=== PATIENT | female | born 1980 | race Caucasian/White ===

== ENCOUNTER → 2017-09-08 18:48 | Outpatient (CLI) | payer OTHER, SELFPAY ==
[2017-09-12 11:38] LABS: HPV APTIMA, High Risk Negative (Negative)
== END ==
PROVIDERS: Visit Provider Obstetrics & Gynecology
DX: Z12.4 Encounter for screening for malignant neoplasm of cervix (principal)
CPT/HCPCS: 88175; G0145

== ENCOUNTER → 2017-12-26 13:17 | Outpatient (CLI) | payer SELFPAY, OTHER | PROVIDERS: Visit Provider Internal Medicine | DX: E04.9 Nontoxic goiter, unspecified (principal) | CPT/HCPCS: 76536 ==

== ENCOUNTER → 2019-02-05 15:25 | Outpatient (CLI) | payer BC, SELFPAY ==
[2018-11-16 08:39] VITALS: BMI 29.9
--- NOTE | 2019-02-05 15:31 | US_ITS ---
STUDY: THYROID ULTRASOUND REASON FOR EXAM: Female, 38 years old. Thyroid nodule follow-up TECHNIQUE: Ultrasound evaluation of the thyroid was performed with real-time and static lyons-scale imaging. COMPARISON: 12/26/2017 FINDINGS: RIGHT LOBE: The right lobe of the thyroid gland measures 4.0 x 1.9 x 1.1 cm. There is a homogeneous echotexture. Small anechoic cyst of the mid right thyroid lobe measures 3 mm with possible echogenic crystal. LEFT LOBE: The left lobe of the thyroid gland measures 4 x 1.7 x 1.2 cm. There is a homogeneous echotexture. Similar nearly anechoic cyst of the left thyroid lobe measures up to 4 mm. ISTHMUS: The isthmus measures 2 mm. The regional lymph nodes are normal. US/Thyroid IMPRESSION: Stable exam. Colloidal cysts. No suspicious/solid, new or enlarging thyroid nodules. Electronically Signed: Thai Neville MD ([facility]) at 15:52 EDT , Service support ,
== END ==
PROVIDERS: Family Provider Internal Medicine; PCP Internal Medicine; Referring Provider Internal Medicine; Visit Provider Internal Medicine
DX: E04.1 Nontoxic single thyroid nodule (principal)
CPT/HCPCS: 76536

== ENCOUNTER → 2019-12-06 08:59 | Outpatient (CLI) | payer BC, SELFPAY ==
[2019-12-06 08:59] VITALS: BMI 29.9
[2019-12-06 09:35] LABS: Absolute Lymphocyte Count 1.54 X10^3/uL (0.83-4.51); Absolute Neutrophil Count 2.7 X10^3/uL (2.0-7.7); Basophil# 0.06 X10^3/uL; Basophil% 1.3 % (0-1); Eosinophils% 2.1 % (0-5); Hematocrit 39.2 % (37-47); Hemoglobin 12.4 g/dL (12.0-15.0); Lymphocyte # 1.54 X10^3/ul (4.0); Lymphocyte % 32.1 % (19-41); Mean Corp Hgb Conc 31.6 g/dL (32-36); Mean Corpuscular Hgb 28.8 pg (27.0-32.0); Mean Platelet Vol. 10.1 fl (6.2-12.0); Monocyte# 0.42 X10^3/uL; Monocyte% 8.8 % (0-10); NRBC Flagged by Analyzer 0 % (0-5); Neutrophil # 2.66 X10^3/uL (2.7-7.7); Neutrophil % 55.3 % (47-70); Platelet Count 289 K/mm3 (150-450); RBC Distribution Width CV 13.7 % (11.6-14.6); RBC Distribution Width SD 46.5 fl (35.1-43.9); Red Blood Count 4.31 M/mm3 (4.2-5.4); White Blood Count 4.8 K/mm3 (4.4-11.0)
[2019-12-06 10:01] LABS: T4 Free Direct 1.08 ng/dL (0.76-1.46); Thyroid Stim Hormone (TSH) 1.01 uIU/mL (0.358-3.74)
== END ==
PROVIDERS: PCP Internal Medicine; Referring Provider Nurse Practitioner Women's Health; Visit Provider Nurse Practitioner Women's Health
DX: R23.2 Flushing (principal); Z13.29 Encounter for screening for other suspected endocrine disorder
CPT/HCPCS: 36415; 84439; 84443; 85025

== ENCOUNTER → 2020-06-07 08:48 | Outpatient (CLI) | payer BC, SELFPAY ==
[2019-12-06 08:59] VITALS: BMI 29.9
--- NOTE | 2020-06-07 08:53 | BI_ITS ---
MAMMOGRAPHY - BILATERAL DIAGNOSTIC REASON FOR EXAM: Female, 39 years old. 3 day history of a right breast lump. PERTINENT HISTORY: Non-contributory. TECHNIQUE: Digital bilateral breast viktoriya (3D mammographic acquisition) in the CC and MLO projections. 2-D mediolateral oblique (MLO) and craniocaudad (CC) views of both breasts were obtained. CAD: Full Field Digital Mammography with Computer Added Detection was performed. COMPARISON: None. Baseline examination. FINDINGS: Breast Composition: The breasts are heterogeneously dense, which may obscure small masses. There are no dominant masses or suspicious calcifications. No other significant abnormalities are identified. BI/DIAG MAMM W/CAD, BILAT IMPRESSION: Negative diagnostic mammogram. With the patient''s history of a palpable lump in the right breast, correlation with ultrasound is recommended. ASSESSMENT CATEGORY: BIRADS Category 0: Incomplete. Need additional imaging evaluation. A letter regarding these results will be sent to the patient by the facility within 30 days. Approximately 10% of breast cancers are not detected by mammography. A normal mammogram should not delay biopsy of a clinically suspicious abnormality. Electronically Signed: Kevin Mensah MD at 10:03 EST , Service support ,
--- NOTE | 2020-06-07 09:35 | US_ITS ---
STUDY: ULTRASOUND BREAST - RIGHT REASON FOR EXAM: Female, 39 years old. Deep right palpable abnormality. TECHNIQUE: Axial and longitudinal images of the RIGHT breast were performed with a high resolution ultrasound transducer. # OF IMAGES: 22 COMPARISON: Comparison is made with prior mammogram done earlier today. FINDINGS: RIGHT Breast: The palpable abnormality in the deep inferior lateral portion of the right breast corresponds to a palpable pectoralis muscle. US/Breast Limited Unilateral IMPRESSION: No sonographic abnormality is seen. ASSESSMENT CATEGORY: BIRADS Category 1: Negative. A letter regarding these results will be sent to the patient by the facility within 30 days. Electronically Signed: Kevin Mensah MD at 10:35 EST , Service support ,
== END ==
PROVIDERS: PCP Internal Medicine; Referring Provider Internal Medicine; Visit Provider Internal Medicine
DX: N63.0 Unspecified lump in unspecified breast (principal)
CPT/HCPCS: 76642; 77062; 77066; G0279

== ENCOUNTER 2020-07-20 05:59 | Day surgery (SDC) | payer BC, SELFPAY ==
[2020-07-06 13:24] VITALS: BMI 31.5
[2020-07-20] VITALS (7 sets, daily range): BP systolic 117–136; BP diastolic 59–97; PULSE 63–80; RESP 16–18; TEMP 36.4–36.6; O2SAT 98–100; BMI 31.1
--- NOTE | 2020-07-20 06:11 | HP.PCM_ITS ---
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 Is patient in pain?: Yes (Right ribs) Pain scale (1-10): 6 Allergies acetaminophen [From Darvocet-N] Allergy (Verified 07/06/20 13:26) Angioedema propoxyphene [From Darvocet-N] Allergy (Verified 07/06/20 13:26) Angioedema Medications cholecalciferol (vitamin D3) 50 mcg (2,000 unit) capsule 2,000 unit PO DAILY 11/16/18 [History Confirmed 07/06/20] omega-3 fatty acids 1,000 mg capsule 1,000 mg PO DAILY 07/06/20 [History Confirmed 07/06/20] [facility] Medical History Thyroid nodule (Acute) Decreased libido (Chronic) Abnormal Pap smear of cervix (Acute) Goiter (Acute) Surgical History H/O umbilical hernia repair (Resolved) S/P foot surgery, left (Resolved) Family History Unknown Arthritis Cancer Hypertension High cholesterol Kidney stones CVA (cerebral vascular accident) Thyroid ca Thyroid nodule Social History (Updated 07/06/20 @ 16:[address] 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 She complains of focal tenderness. She has had a right breast ultrasound done June 07 at the [facility]. On ultrasound it is felt to correspond to a palpable pectoralis muscle. The patient had diagnostic mammography on June 07, 2020 at the [facility]. This was BI-RADS Category 0 negative. Breast ultrasound recommended. The patient also had a MRI done of the chest and shoulder area at [facility]. On my inspection of those views there appears to be a soft tissue mass adjacent the right chest wall. This would correlate with her physical exam. HPI HPI HPI: MIYA SHEPPARD, is a 39 F who presents to the office today for ROS General General: Yes fatigue; no weight change, appetite, colon cancer, breast cancer or weakness HEENT HEENT: No difficulty swallowing, eye injury, eye surgery, swollen glands or hoarseness Endo Endocrine: No thyroid disease, diabetes mellitus, thyroid cancer, Hair loss, heat intolerance or cold intolerance Skin Skin: No rash or changing moles Musc Musculoskeletal: No back problems, arthritis, rheumatoid arthritis, gout or joint pain Cardio Cardiovascular: No murmur, pacemaker, heart disease, atrial fibrillation, high blood pressure, heart attack, heart stent, palpitations, shortness of breat with exertion or chest pain Psych Psychiatric: No depression, anxiety or hearing voices Resp Respiratory: No shortness of breath, No sleep apnea, No cough, No COPD, No asthma, No emphysema, No wheezing Gastro Gastrointestinal: No abdominal pain, No nausea or vomiting, No diarrhea, No constipation, No blood in stool, No acid reflux, Yes hemorrhoids, No ulcers, No gallbladder problem, No black,tarry stools Sandip Hematologic: No blood thinners, No blood disorders, No bleeding, No anemia, No blood clots Neuro Neurologic: No weakness Exam Const General: cooperative, healthy appearing, comfortable, no acute distress Nutritional Appearance: average body habitus Orientation: alert, awake [facility] Head: normal to inspection Eyes General: appearance normal, both eyes and all related structures Chest Other: Right lateral chest wall lateral to the breast there is a rubbery subcutaneous mass measuring approximately 3.5 x 3 cm. Has some deep fixation. Slightly tender to palpation. No erythema no drainage. Resp Effort & Inspection: normal respiratory effort Auscultation: clear to auscultation bilaterally Cardio Rate: regular rate Rhythm: regular rhythm Heart Sounds: no murmurs GI Palpation: soft, no hepatosplenomegaly Neuro Cognition: normal cognition Extrem General: no calf tenderness Psych Affect: normal affect Assessment & Plan Problems 1. Subcutaneous mass R22.9 Plan Subcutaneous mass right lateral chest wall. I have offered the patient a transverse incision and complete excision. I believe that this would be most easily accomplished under monitored anesthesia care and local anesthetic. I discussed technique, benefit, risk of alternatives. She has had an opportunity to ask and have questions answered. If persistent being tender to her. I have cautioned her that there is the possibility that a complete excision does not absolutely remedy her discomfort but it would seem reasonable that this mass is etiologic. We will schedule procedure at her discretion. I very much appreciate the kind opportunity of assisting with her surgical care. Copy: Dr. Maude Hayden and Dr. Chun Scott M.D., F.A.C.S. After to the patient's departure I did obtain interpretation from her chest with contrast MRI with special attention to the right thorax that was performed for her through [facility] on June 20, 2020. There is suggestion of a insertional tear of the supraspinatus tendon. There is a 1 cm fluid density in the liver dome either a cyst or hemangioma. There is no discussion of any soft tissue finding right lateral chest wall. To my review however I feel that I do identify a subcutaneous soft tissue mass. I believe that this correlates with the soft tissue subcutaneous mass that I can palpate and I suspect that this is consistent with a lipoma. We will proceed with plans for excision Marco Scott M.D., F.A.C.S. Coding Level of Care Code Off vis,new,level 3 Diagnoses Subcutaneous mass R22.9 I have re-examined the patient. There are no clinical changes since date of exam. Procedure Criteria Procedure Type: Elective COVID Risk Discussion: The surgeon/proceduralist and patient have discussed in detail the risk of exposure to and/or potential harm posed by the COVID-19 virus with having a surgery/procedure at this time versus the risk of delaying the surgery/procedur e. It is not possible to know either the risk of delaying the surgery or procedure or chance of getting an infection with perfect accuracy, but a joint decision was made between the patient and the surgeon/proceduralist to proceed at this time with the scheduled surgery/procedure as indicated on the consent form.
--- NOTE | 2020-07-20 06:12 | DCINST_ITS ---
Discharge Diet: Light diet - advance as tolerated - if you have questions about your diet instructions, please talk to you doctor. Discharge Activity: May Not Drive - for 1 week or while taking narcotic pain medicine. May shower in (days): 1 Lifting Restrictions: 10 pounds Call your doctor if your incision/area has: Continuous Slow Oozing, Sudden Increased Bleeding, Increased Pain/ Swelling, Increased Redness, Foul Smelling Discharge Call your doctor if you observe: Fever of 101 or Higher Suture Line Care: Avoid Pulling/Pushing, Avoid Pinching/Bending Additional Dressing/Incision Instructions:: Change or remove dressing in 4 days. Leave steri-strips in place for 1 week. Allergies/Adverse Reactions: Allergies acetaminophen [From Darvocet-N] Allergy (Verified 07/13/20 09:57) Angioedema propoxyphene [From Darvocet-N] Allergy (Verified 07/13/20 09:57) Angioedema Medications to take at Discharge cholecalciferol (vitamin D3) 50 mcg (2,000 unit) capsule 2,000 unit PO DAILY 11/16/18 omega-3 fatty acids 1,000 mg capsule 1,000 mg PO DAILY 07/06/20 Primary Care Physician: Maude Hayden DO [Primary Care Provider] - Test Results: Test results from this visit will be discussed in further detail at your follow- up appointment, if applicable. Please Follow Up With: Marco Scott MD - [phone] When: Call to make an appointment to be seen in about 10 days.
[2020-07-20 06:17] LABS: Internal QC Validated? YES +Cl - CLEAR BKGD; Pregnancy, Urine Negative Negative
[2020-07-20] MEDS: Lactated Ringers 1,000 ML 100 ML IV (06:42)
--- NOTE | 2020-07-20 07:30 | SOF_PTH ---
PATIENT: MIYA SHEPPARD LOC: [facility] [place] U#:[id number] AGE/SX: 39/F ROOM: RE07/20/[address]: Dr. Marco Scott MD : 1980 BED: DIS: 07/20/2020 SPEC #: [id number] RECD: 07/20/20 11:03 STATUS: BENJAMIN TICO #: [id number] JONI: 07/20/20 07:[address]: Marco Scott DEPT: SURGICAL PATHOLOGY RECD BY: Kia Billy ENTERED: 07/20/20 12:19 SP TYPE: SOFT TISS OTHR DR: Maude Hayden, Tissues: Soft tissues, NOS Procedures: Surgery Specimen Level III HEADER OPERATION: Excision lateral chest wall subcutaneous mass PRE-OP DIAGNOSIS: Subcutaneous mass TISSUE SUBMITTED: Right chest wall mass MICROSCOPIC DIAGNOSIS Right chest wall, excisional biopsy: Mature adipose tissue, consistent with lipoma. SJ:paul 07/21/2020 MICROSCOPIC DESCRIPTION Slides are reviewed. GROSS DESCRIPTION Received in fixative is one container labeled with the patient's name and designated right lateral chest wall mass. The specimen consists of an irregular piece of adipose tissue measuring 6 x 4.5 x 1.5 cm. The external surface is inked. Sections reveal yellow adipose cut surfaces without areas of hemorrhage, necrosis or cystic degeneration. Trim Line Worker sections are submitted in three cassettes. / PARTH:paul 07/20/20 TC:1 CPT: 52600
[2020-07-20] MEDS: Bupivacaine Mpf 0.5% 30 ML VIAL (07:50)
--- NOTE | 2020-07-20 07:59 | PCM.OPRPT ---
Problem List (1) Subcutaneous mass Status: Acute Report of Operation Date of Procedure: 07/20/20 Pre-Operative Diagnosis: Right mid lateral chest wall subcutaneous mass Post-Operative Diagnosis: Right mid lateral chest wall subcutaneous lipoma 6 x 4.5 cm Surgery/Procedure Performed:: Excision right mid lateral subcutaneous chest wall mass Description of Surgical Findings:: Timeout and informed consent was obtained. 39-year-old female was taken to the operating room placed supine on the table underwent general anesthesia with an LMA. She was then placed in a left lateral decubitus position. Careful axillary roll was placed. Pelvic securement was placed. The knees were secured and protected. Ankles were protected. The right mid lateral chest was prepped with chlorhexidine. Draping was performed. 0.5% Marcaine was used as a local anesthetic. Skin sites were preanesthetized. Throughout the procedure total 30 cc was used. A transverse incision was made directly over the mass. Electrocautery dissection was performed down through the subcutaneous tissue. There was a tough sinew in the fascia overlying the capsule which was incised and then the lipoma actually could be dissected free. It appeared to be external to the oblique musculature. I felt that I got a complete excision. Hemostasis was intact. The Radames's fascia was approximated with running 3-0 Vicryl. Subdermal edges approximate interrupted 3-0 Vicryl. Skin edges approximated with a running septic or 4-0 Monocryl. Skin prep Steri-Strips Telfa OpSite dressings applied. Sponge and instrument and needle counts were reported the surgeon to be correct. Blood loss minimal. She was taken to the recovery area in satisfactory condition without apparent complication. Specimen lipoma. Drains none. Blood loss minimal. Marco Scott M.D., F.A.C.S. Type of Anesthesia:: General Anesthesiologist: Poly Gayle
== END 2020-07-20 09:20 | disposition home or self-care (01) ==
LOC: SDC 05:59 → AC 06:01
PROVIDERS: Anesthesiology; PCP Internal Medicine; Referring Provider Surgery; Visit Provider Surgery
PROC: (CPT 21554; principal; 2020-07-20 07:15)
DX: D17.1 Benign lipomatous neoplasm of skin and subcutaneous tissue of trunk (principal); Z20.822 Contact with and (suspected) exposure to COVID-19; Z87.891 Personal history of nicotine dependence
CPT/HCPCS: 21554; 81025; 87426; 88304; 88305; C9803; J7120; J2405

== ENCOUNTER → 2020-12-14 15:45 | Outpatient (CLI) | payer BC, SELFPAY ==
[2020-07-20 06:25] VITALS: BMI 31.1
--- NOTE | 2020-12-14 15:49 | CT_ITS ---
STUDY: CT ABDOMEN AND PELVIS WITHOUT CONTRAST REASON FOR EXAM: Female, 40 years old. STONE PROTOCOL RADIATION DOSAGE (If Supplied By Facility): CTDIvol = ( 9.07 ) mGy, DLP = ( 558.84 ) mGycm TECHNIQUE: Transaxial images were obtained from the dome of the diaphragm to the symphysis pubis without oral contrast, and without intravenous contrast. Sagittal and coronal images were reconstructed. Individualized dose optimization techniques were used for this CT. COMPARISON: None. FINDINGS: The visualized lung bases are unremarkable. The visualized portions of the heart are within normal limits. 2 cm mass of decreased attenuation the posterior aspect lateral segment left lobe of the liver and correlation with liver mass protocol CT is recommended. Normal gallbladder and extrahepatic biliary system. Normal spleen. Normal pancreas. Normal bilateral adrenal glands. Normal right kidney. Normal left kidney. Normal visualized stomach. Normal small intestine. Normal colon. The appendix is visualized and appears normal. Normal abdominal aorta. Normal inferior vena cava. Normal retroperitoneum. Normal urinary bladder. Normal abdominal wall. Normal osseous structures. CT/Abdomen/Pelvis without Cont IMPRESSION: 1. No renal or ureteral stone. 2. 2 cm mass in the lateral segment left lobe of the liver and correlation with liver mass protocol is recommended. Electronically Signed: Jose Zavala MD at 16:37 EDT Tel , Service support ,
== END ==
PROVIDERS: PCP Internal Medicine; Visit Provider Internal Medicine
DX: R10.9 Unspecified abdominal pain (principal)
CPT/HCPCS: 74176

== ENCOUNTER → 2020-12-18 06:57 | Outpatient (CLI) | payer BC, SELFPAY ==
--- NOTE | 2020-12-18 06:59 | CT_ITS ---
STUDY: CT ABDOMEN WITH AND WITHOUT IV CONTRAST; CT PELVIS WITH CONTRAST REASON FOR EXAM: Female, 40 years old. LIVER MASS,LEFT LOBE -- CONCENTRATE ON LIVER MASS PROTOCOL RADIATION DOSAGE (If Supplied By Facility): CTDIvol = ( 11.49 ) mGy, DLP = ( 1542.01 ) mGycm TECHNIQUE: Transaxial images were obtained from the dome of the diaphragm to the symphysis pubis without oral contrast. IV 100mL Isovue-[id number] was administered. Imaging of the abdomen and pelvis was performed according to liver protocol without and with IV contrast. Sagittal and coronal images were reconstructed. Individualized dose optimization techniques were used for this CT. COMPARISON: 12/14/2020 FINDINGS: The visualized lung bases are unremarkable. The visualized portions of the heart are within normal limits. 2.0 x 2.3 cm low-density lesion of the posterior left hepatic lobe is redemonstrated with peripheral enhancement and subsequent progressive filling, compatible with hemangioma (benign). 7 mm enhancing lesion of the posterior left hepatic lobe (lateral segment) on image 22 of series 3) is also compatible with hemangioma. Subtle low density lesion of the anterior medial segment left hepatic lobe on image 5 of series 2 measures 1 cm with peripheral enhancement (inconspicuous on delayed imaging), also compatible with hemangioma. Normal gallbladder and extrahepatic biliary system. Normal spleen. Normal pancreas. Normal bilateral adrenal glands. Normal right kidney. Normal left kidney. Normal visualized stomach. Normal small intestine. Normal colon. The appendix is visualized and appears normal. Normal abdominal aorta. Normal inferior vena cava. Normal retroperitoneum. Normal urinary bladder. Normal abdominal wall. Normal osseous structures. CT/CT Abd/Pelvis W/WO Contrast IMPRESSION: 1. Multiple hepatic hemangiomata (benign) including 2.0 x 2.[address] of 12/14/2020. ACR White Paper guidelines (Estelita, et al. JACR 2017; 14(11):5171-6999.) suggest no follow-up is necessary. Electronically Signed: Thai Neville MD (Bro[place]) at 8:00 EDT , Service support ,
== END ==
PROVIDERS: PCP Internal Medicine; Referring Provider Internal Medicine; Visit Provider Internal Medicine
DX: R16.0 Hepatomegaly, not elsewhere classified (principal)
CPT/HCPCS: 74178; Q9967

== ENCOUNTER → 2021-12-25 | Outpatient (CLI) | payer BC, SELFPAY ==
--- NOTE | 2021-12-25 08:52 | BI_ITS ---
MAMMOGRAPHY - BILATERAL SCREENING REASON FOR EXAM: Female, 41 years old. Routine annual screening examination. PERTINENT HISTORY: Non-contributory. TECHNIQUE: Digital bilateral breast tom (3D mammographic acquisition) in the CC and MLO projections. 2-D mediolateral oblique (MLO) and craniocaudad (CC) views of both breasts were obtained. CAD: Full Field Digital Mammography with Computer Added Detection was performed. COMPARISON: Comparison is made with prior study dated 06/07/2020. FINDINGS: Breast Composition: The breasts are heterogeneously dense, which may obscure small masses. There are no dominant masses or suspicious calcifications. Small benign-appearing left axillary lymph nodes. No other significant abnormalities are identified. There has been no significant change since the prior study. BI/SCRN MAMM (CAD)W/TOM BILAT IMPRESSION: Stable bilateral screening mammogram. Yearly follow-up mammogram recommended. (A) ASSESSMENT CATEGORY: BIRADS Category 2: Benign. A letter regarding these results will be sent to the patient by the facility within 30 days. Approximately 10% of breast cancers are not detected by mammography. A normal mammogram should not delay biopsy of a clinically suspicious abnormality. [id number] Electronically Signed: Kevin Mensah MD at 8:38 EDT ,
== END | disposition home or self-care (01) ==
LOC: OPBI 08:51
PROVIDERS: PCP Internal Medicine; Visit Provider Nurse Practitioner Women's Health
DX: Z12.31 Encounter for screening mammogram for malignant neoplasm of breast (principal); N89.8 Other specified noninflammatory disorders of vagina
CPT/HCPCS: 77063; 77067; 87070; 87205

== ENCOUNTER → 2022-12-27 | Outpatient (CLI) | payer OTHER, SELFPAY ==
--- NOTE | 2022-12-27 07:56 | US_ITS ---
STUDY: THYROID ULTRASOUND REASON FOR EXAM: Female, 42 years old. Thyromegaly TECHNIQUE: Ultrasound evaluation of the thyroid was performed with real-time and static lyons-scale imaging. COMPARISON: Comparison is made with prior study February 05, 2019. FINDINGS: RIGHT LOBE: The right lobe of the thyroid gland is enlarged and measures 5.2 cm x 1.6 cm x 1.1 cm. There is a homogeneous echotexture. There is a 4 mm x 3 mm x 2 mm cyst in the upper pole. There is also evidence of a 2 mm x 2 mm x 2 mm cyst in the lower pole. LEFT LOBE: The left lobe of the thyroid gland is enlarged and measures 5 cm x 1.6 x 1.2 cm. There is a homogeneous echotexture. There are no demonstrated solid, cystic or complex lesions. ISTHMUS: The isthmus measures 3.0 mm. The regional lymph nodes are normal. US/Thyroid IMPRESSION: Small cysts are seen in the right lobe of the thyroid. Enlargement of both lobes of the thyroid gland. Electronically Signed: Kevin Mensah MD at 14:04 EDT ,
--- NOTE | 2022-12-27 07:56 | BI_ITS ---
MAMMOGRAPHY - BILATERAL SCREENING REASON FOR EXAM: Female, 42 years old. Routine annual screening examination. PERTINENT HISTORY: Non-contributory. TECHNIQUE: Digital bilateral breast tom (3D mammographic acquisition) in the CC and MLO projections. 2-D mediolateral oblique (MLO) and craniocaudad (CC) views of both breasts were obtained. CAD: Full Field Digital Mammography with Computer Added Detection was performed. COMPARISON: Comparison is made with prior study dated December 25, 2021 and June 07, 2020. FINDINGS: Breast Composition: The breasts are heterogeneously dense, which may obscure small masses. There are no dominant masses or suspicious calcifications. No other significant abnormalities are identified. There has been no significant change since the prior study. BI/SCRN MAMM (CAD)W/TOM BILAT IMPRESSION: Stable bilateral screening mammogram. Yearly follow-up mammogram recommended. (A) ASSESSMENT CATEGORY: BIRADS Category 1: Negative. A letter regarding these results will be sent to the patient by the facility within 30 days. Approximately 10% of breast cancers are not detected by mammography. A normal mammogram should not delay biopsy of a clinically suspicious abnormality. [id number] Electronically Signed: Kevin Mensah MD at 10:09 EDT ,
== END | disposition home or self-care (01) ==
PROVIDERS: PCP Internal Medicine; Referring Provider Internal Medicine; Visit Provider Internal Medicine
DX: Z12.31 Encounter for screening mammogram for malignant neoplasm of breast (principal)
CPT/HCPCS: 76536; 77063; 77067

== ENCOUNTER → 2023-01-01 | Outpatient (CLI) | payer OTHER, SELFPAY ==
[2023-01-03 11:09] LABS: Chlamydia By Nucleic Acid AMP Negative (Negative); Gonococcus By Nucleic Acid AMP Negative (Negative)
[2023-01-04 16:08] LABS: HPV APTIMA, High Risk Negative (Negative)
== END | disposition home or self-care (01) ==
LOC: LABSPEC 09:58
PROVIDERS: PCP Internal Medicine; Referring Provider Nurse Practitioner Women's Health; Visit Provider Nurse Practitioner Women's Health
DX: Z12.4 Encounter for screening for malignant neoplasm of cervix (principal); N89.8 Other specified noninflammatory disorders of vagina; N92.0 Excessive and frequent menstruation with regular cycle; N94.6 Dysmenorrhea, unspecified
CPT/HCPCS: 87070; 87077; 87205; 87491; 87591; 87624; 88175; G0145

== ENCOUNTER → 2024-01-05 | Outpatient (CLI) | payer OTHER, SELFPAY ==
--- NOTE | 2024-01-05 08:31 | BI_ITS ---
MAMMOGRAPHY - BILATERAL SCREENING REASON FOR EXAM: Female, 43 years old. Routine annual screening examination. PERTINENT HISTORY: Non-contributory. TECHNIQUE: Digital bilateral breast tom (3D mammographic acquisition) in the CC and MLO projections. 2-D mediolateral oblique (MLO) and craniocaudad (CC) views of both breasts were obtained. CAD: Full Field Digital Mammography with Computer Added Detection was performed. COMPARISON: Comparison is made with prior study December 27, 2022 and December 25, 2021. FINDINGS: Breast Composition: The breasts are heterogeneously dense, which may obscure small masses. There are no dominant masses or suspicious calcifications. No other significant abnormalities are identified. There has been no significant change since the prior study. BI/SCRN MAMM (CAD)W/TOM BILAT IMPRESSION: Stable bilateral screening mammogram. Yearly follow-up mammogram recommended. (A) ASSESSMENT CATEGORY: BIRADS Category 1: Negative. A letter regarding these results will be sent to the patient by the facility within 30 days. Approximately 10% of breast cancers are not detected by mammography. A normal mammogram should not delay biopsy of a clinically suspicious abnormality. [id number] Electronically Signed: Kevin Mensah MD at 9:38 EDT ,
== END | disposition home or self-care (01) ==
LOC: OPBI 08:31
PROVIDERS: PCP Internal Medicine; Referring Provider Nurse Practitioner Women's Health; Visit Provider Nurse Practitioner Women's Health
DX: Z12.31 Encounter for screening mammogram for malignant neoplasm of breast (principal)
CPT/HCPCS: 77063; 77067

== ENCOUNTER → 2025-01-06 | Outpatient (CLI) | payer OTHER, SELFPAY ==
--- NOTE | 2025-01-06 07:45 | BI_ITS ---
EXAM: SCRN MAMM (CAD)W/TOM BILAT DATE: 01/06/2025 CLINICAL HISTORY: F, Age 44 y/o , SCREEN FOR BREAST CANCER No family history. TECHNIQUE: Procedure Code: [id number] Modality: MG Procedure: SCRN MAMM (CAD)W/TOM BILAT COMPARISON: Prior exam(s) dated January 05, 2024.. FINDINGS: TISSUE DENSITY: The breasts are heterogeneously dense, which may obscure small masses. Bilateral Breast Mammographic Findings: No significant masses, calcifications or other abnormalities are identified. No suspicious masses, areas of developing architectural distortion, or suspicious calcifications. There has been no significant interval change. BI/SCRN MAMM (CAD)W/TOM BILAT IMPRESSION: Stable bilateral screening mammogram. OVERALL FINAL ASSESSMENT BI-RADS 1: NEGATIVE. RECOMMENDATION: Routine annual follow-up in 1 Year A letter with findings and recommendations will be mailed to the patient. Reading Location: [place] [address]
--- OUTSIDE RECORDS SUMMARY | 2025-01-06 07:58 | XMS RPT_ITS | CCD ---
Author Organization [facility] Care Team Providers Care Bleach Tester Name Role Phone Maude Hayden Unavailable Kylee Hearn Unavailable Gravius, Keisha Unavailable Unavailable Messenger, Amy Unavailable Unavailable Unavailable Unavailable Jose Manzanares Unavailable Jose Manzanares Unavailable Slarb, Maritza Unavailable Unavailable Jose Manzanares Unavailable Suki Teague Unavailable Unavailable Gravius, Keisha Unavailable Unavailable Maude Hayden DO Unavailable Kylee Hearn Unavailable Jose Manzanares Unavailable Slarb WAITER AND CASHIER, Maritza Unavailable Unavailable Luz WAITER AND CASHIER, Latisha Unavailable Unavailable Unavailable Unavailable DO Maude Hayden Primary Care Provider Unavai labDO Maude Feliciano Referring Provider Unavailab maldonado Reyes SDV PILOT/NAVIGATOR/DDS OPERATOR, SDV PILOT/NAVIGATOR/DDS OPERATOR-C Janet Attending Provider Krissy Duran MA Unavailable Unavailable DO Maude Méndez Referring Provider Unava ilable Amy SDV PILOT/NAVIGATOR/DDS OPERATOR, SDV PILOT/NAVIGATOR/DDS OPERATOR-C Janet Attending Provider Dr. Maude Hayden Primary Care Provider [phone] Maude Hayden Referring Unavailable Maude Hayden Primary Care Unavailable Guild SDV PILOT/NAVIGATOR/DDS OPERATOR, Janet Attending Unavailable Maude Hayden Primary Care Unavailable Amy SDV PILOT/NAVIGATOR/DDS OPERATOR, Janet Referring Unavailable Amy SDV PILOT/NAVIGATOR/DDS OPERATOR, Janet Attending Unavailable Guild SDV PILOT/NAVIGATOR/DDS OPERATOR, Janet Attending Unavailable Maude Hayden Primary Care Unavailable Guild SDV PILOT/NAVIGATOR/DDS OPERATOR, Janet Referring Unavailable Maude Hayden Referring Unavailable Maude Hayden Primary Care Unavailable Guild SDV PILOT/NAVIGATOR/DDS OPERATOR, Janet Attending Unavailable Dr. Maude Hayden DO Primary Care Physician Dr. Maude Hayden DO Referring Provider Janet Steward Attending Physician [phone] Allergies Allergy Classification Reported Allergen(s) Allergy Type Date of Onset Reaction(s) Facility (7 sources) Acetaminophen / Propoxyphene; Translations: [Darvocet A500 *ANALGESICS - OPIOID*] Drug Allergy [facility] Work Phone: Comment on above: throat swells up (7 sources) Darvocet A500 *ANALGESICS - OPIOID*; Translations: [Darvocet A500 *ANALGESICS - OPIOID*] Allergy to drug (finding) [facility]; [facility] Work Phone: Comment on above: throat swells up (3 sources) Acetaminophen Drug Allergy 2 Angioedema [facility] (3 sources) Propoxyphene Drug Allergy 2 Angioedema [facility] (1 source) Acetaminophen Drug Allergy 4 [facility] (1 source) Propoxyphene Drug Allergy 4 [facility] Medications Current Medications Medication Drug Class(es) Dates Sig (Normalized) Sig (Original) cholecalciferol 0.05 mg oral capsule (3 sources) Vitamin D Start: 11-16-2018 take 1 capsule by mouth once daily Cholecalciferol (Vitamin D3) 2,000 unit capsule Active 2000 U PO DAILY November 16, 2018 12:00am Complies with drug therapy Multivitamin preparation (2 sources) Start: 12-21-2020 take 1 tablet by mouth once daily Multivitamin Active 1 TABLET PO DAILY December 21, 2020 12:00am Multivitamin tablet (1 source) Start: 12-21-2020 Multivitamin tablet Active 1 {tbl} PO DAILY December 21, 2020 12:00am Complies with drug therapy Rocky-3 Fatty Acids (Fish Oil Concentrate) 1,000 mg capsule (3 sources) Start: 07-06-2020 take 1 capsule by mouth once daily Rocky-3 Fatty Acids (Fish Oil Concentrate) 1,000 mg capsule Active 1000 mg PO DAILY July 06, 2020 12:00am Complies with drug therapy Start: 07-06-2020 take 1 capsule by mo ut once daily Rocky-3 Fatty Acids (Fish Oil Concentrate) 1,000 mg capsule Active 1000 MG PO DAILY July 06, 2020 12:00am Completed/Discontinued Medications Medication Drug Class(es) Dates Sig (Normalized) Sig (Original) certain dry (10 sources) certain dry per package apply qhs on clean dry skin adn wash off in am Inactive copper 313 mg drug implant (3 sources) Copper-containing Intrauterine Device Start: 11-16-2018 End: 12-06-2019 Copper (Paragard T 380a) 380 square mm intrauterine device Discontinued 1 NMA INTRA-UTER ONCE November 16, 2018 12:00am December 06, 2019 8:39am Start: 11-16-2018 End: 12-06-2019 Copper (Paragard T 380a) 380 square mm intrauterine device Discontinued 1 DEVICE INTRA-UTER ONCE November 16, 2018 12:00am December 06, 2019 8:39am metroNIDAZOLE 500 mg oral tablet (2 sources) Nitroimidazole Antimicrobial Start: 01-05-2023 End: 01-12-2023 take 1 tablet by mouth twice daily Metronidazole 500 mg tablet Discontinued 500 mg PO TWICE A DAY 14 7 0 January 05, 2023 12:00am January 11, 2023 12:00am January 12, 2023 12:04am NEGATED: Highlighted row has not occurred!drug or medication (9 sources) No Known Historical Medications NEGATED: Highlighted row has not occurred!No Known Historical Medications (1 source) No Known Historical Medications Problems Active Problems Problem Classification Problem Date Documented Date Episodic/Chronic Abdominal pain (20 sources) Right flank pain; Translations: [Right flank pain] Resolved: 11-04-2022 03-01-2021 Episodic Acute and chronic tonsillitis (18 sources) Amygdalolith; Translations: [Tonsillith] Resolved: 11-04-2022 12-10-2018 Chronic Immunizations and screening for infectious disease (19 sources) Need for prophylactic vaccination and inoculation against influenza; Translations: [Needs influenza immunization] 03-01-2021 Episodic Menstrual disorders (7 sources) Menorrhagia; Translations: [Excessive and frequent menstruation with regular cycle] Onset: 01-05-2024 01-01-2023 Chronic Comment on above: US. Failed IUD. cons ider lysteda, nuvaring Nonmalignant breast conditions (11 sources) Breast lump; Translations: [Breast mass in female] Resolved: 11-04-2022 06-06-2020 Episodic Other circulatory disease (20 sources) Feeling of lump in throat; Translations: [Sensation of lump in throat] 12-10-2018 Episodic Comment on above: pnd? gerd? anx possi ble? Other female genital disorders (2 sources) Other specified noninflammatory disorders of vagina; Translations: [Other specified symptoms associated with female genital organs] Episodic Other liver diseases (12 sources) Liver mass; Translations: [Liver mass, left lobe] Resolved: 11-04-2022 03-01-2021 Episodic Comment on above: mri- no issue no bx neeeded Other lower respiratory disease (14 sources) Rib pain; Translations: [Rib pain on right side] Resolved: 11-04-2022 03-01-2021 Episodic Other nutritional; endocrine; and metabolic disorders (4 sources) Body mass index 25-29 - overweight; Translations: [BMI 29.0-29.9,adult] 03-03-2019 Chronic Other nutritional; endocrine; and metabolic disorders (9 sources) Body mass index 30+ - obesity; Translations: [BMI 30.0-30.9,adult] Resolved: 11-03-2022 03-01-2021 Chronic Other nutritional; endocrine; and metabolic disorders (2 sources) Body mass index 25-29 - overweight; Translations: [BMI 29.0-29.9,adult] 03-03-2019 Episodic Other nutritional; endocrine; and metabolic disorders (20 sources) Overweight in adulthood with body mass index of 25 or more but less than 30; Translations: [BMI 29.0-29.9,adult] 03-03-2019 Episodic Other and delivery including normal (14 sources) History of past delivery; Translations: [Vaginal delivery] 12-10-2018 Episodic Comment on above: Other screening for suspected conditions (not mental disorders or infectious disease) (20 sources) Patient encounter status; Translations: [Encounter for screening mammogram for breast cancer (Renamed from Encounter for screening mammogram for malignant neoplasm of breast)] Onset: 02-02-2024 03-01-2021 Episodic Other skin disorders (3 sources) Mass of subcutaneous tissue; Translations: [Localized swelling, mass and lump, unspecified] 12-25-2021 Episodic Other upper respiratory disease (18 sources) Change in voice; Translations: [Change in voice] Resolved: 11-04-2022 12-10-2018 Episodic Comment on above: ? pnd? gerd? Residual codes; unclassified (9 sources) Needs influenza immunization; Translations: [Need for prophylactic vaccination and inoculation against influenza (Renamed from Need for immunization against influenza)] 01-09-2018 Episodic Residual codes; unclassified (20 sources) Family history of malignant neoplasm of thyroid; Translations: [Family history of thyroid cancer] 12-10-2018 Episodic Comment on above: sister Residual codes; unclassified (18 sources) Family history of stroke; Translations: [Family history of cerebrovascular accident (CVA) in grandfather] 01-09-2018 Episodic Comment on above: uner age 50 Residual codes; unclassified (20 sources) Non-smoker; Translations: [Non-smoker] 03-01-2021 Episodic Residual codes; unclassified (2 sources) Family history unknown; Translations: [Other specified health status] 01-01-2023 Episodic Comment on above: Paternal family medi pb history. Considering empower test Residual codes; unclassified (1 source) Other specified health status; Translations: [Other specified conditions influencing health status] 01-01-2023 Episodic Thyroid disorders (20 sources) Thyroid nodule; Translations: [Goiter] 12-10-2018 Chronic Unclassified (20 sources) Past or Other Problems Problem Classification Problem Date Documented Da te Episodic/Chronic Influenza (20 sources) Influenza Residual codes; unclassified (11 sources) Increased body mass index; Translations: [BMI 29.0-29.9,adult] 12-10-2018 Episodic Unclassified (20 sources) Thyromegaly Unclassified (19 sources) Encounter for annual general medical examination with abnormal findings in adult; Translations: [Patient encounter status] 01-09-2018 Unclassified (10 sources) Family history of cerebrovascular accident (CVA) in grandfather Unclassified (11 sources) Family history of thyroid cancer Unclassified (20 sources) Non-smoker; Translations: [Non-smoker] 12-10-2018 Unclassified (14 sources) Pregnancies (); Translations: [Pregnancies ()] 12-10-2018 Comment on above: 2. Unclassified (20 sources) BMI 29.0-29.9,adult Unclassified (5 sources) Patient encounter status; Translations: [Encounter for screening mammogram for breast cancer (Renamed from Encounter for screening mammogram for malignant neoplasm of breast)] 06-06-2020 Unclassified (3 sources) Breast mass in female Unclassified (1 source) Encounter for well adult exam with abnormal findings Unclassified (1 source) Thyroid cyst Unclassified (1 source) BMI 30.0-30.9,adult Unclassified (1 source) Liver mass, left lobe Unclassified (1 source) Rib pain on right side Unclassified (2 sources) Sensation of lump in throat Unclassified (1 source) Change in voice Unclassified (1 source) Tonsillith Results Test Name Value Interpretation Reference Range Facility Noise Abatement Engineer Office Visit Reporton 01-05-2024 Noise Abatement Engineer Office Visit Report [facility] [address], [address] [place] [address] OFFICE VISIT Date of Service: 01/05/24 MR#: [id number] Acct: [id number] Name: MIYA SHEPPARD ANNMARIE Rep #: [id number] : 1980 Provider: LINDSAY alicia Age/Sex: 43/F Location: [facility] Status: Signed Intake Vital Signs 01/01/23 08:20 01/05/24 09:04 01/05/24 09:08 Height 5 ft 1 in 5 ft 1 in 5 ft 1 in Weight: 161 lb 2 oz BMI 30.4 BP 124/80 H 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 Required: No Is patient in pain?: No Allergies acetaminophen (From Darvocet-N) Allergy (Verified 01/05/24 09:04) Angioedema propoxyphene (From Darvocet-N) Allergy (Verified 01/05/24 09:04) Angioedema Medications ???Medication ???Instructions ???Recorded ???Confirmed ???Type cholecalciferol (vitamin D3) 50 2,000 unit PO DAILY 11/16/18 01/05/24 History mcg (2,000 unit) capsule omega-3 fatty acids 1,000 mg 1,000 mg PO DAILY 07/06/20 01/05/24 History capsule (Fish Oil Concentrate) multivitamin 1 tab PO DAILY 12/21/20 01/05/24 History Is last menstrual period known: Yes Last Menstrual Period: 12/11/23 Post menopausal: No Patient : No : No PFSH Medical History (Updated 01/05/24 @ 09:16 by Janet Reyes SDV PILOT/NAVIGATOR/DDS OPERATOR, SDV PILOT/NAVIGATOR/DDS OPERATOR-C) Liver hemangioma Lipoma Subcutaneous mass Thyroid nodule Goiter Abnormal Pap smear of cervix Surgical History S/P foot surgery, left H/O umbilical hernia repair Family History Unknown Arthritis Cancer Hypertension High cholesterol Kidney stones CVA (cerebral vascular accident) Thyroid ca Thyroid nodule Social History Smoking Status: Former smoker alcohol intake: current alcohol intake frequency: holidays/special occasions only substance use type: does not use caffeine: Yes what type of physical activity do you participate in: running frequency: 1-2 times per week seatbelt use: always do you feel safe at home: Yes 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 Date Name GA/Weeks Outcome Route Bth Weight Gen Labor Lgth Anesthesia Del Locatn Provider FOB Unknown Jurgen-2006 Male Unknown Tenisha-2011 Female HPI Encounter for routine gynecological examination Details: MIYA SHEPPARD is a 43 year old who presents for annual exam. Menses regular and continue to be heavy. Discussed last year, failed IUD. Not sure she wants daily medication. 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 Last PAP: 2022 History of abnormal PAP: cryo 16 yr. ago. Neg since Last mammogram: today History of abnormal mammogram: no Colon cancer screening: age 45 Other preventative health care screenings: [place] Female Reproductive History Last Menstrual Period: 12/11/23 Cycle Length: 21-35 Questions: metorrhagia: Yes, sexually active: Yes, dyspareunia: No and PCB: No ROS Const Constitutional: Denies fatigue, weight gain or weight loss Cardio Card: Denies chest pain Resp Resp: Denies cough or dyspnea on exertion GI GI: Denies abdominal pain, bloating, change in stool character, constipation or vomiting : Reports as per HPI; Denies difficulty voiding, pelvic pain, urinary frequency, urinary incontinence, urinary urgency, vaginal discharge or vaginal pruritus Exam Const General: cooperative, healthy appearing, no acute distress and well developed Orientation: alert, oriented to person and oriented to place HENAK Head: normal to inspection Neck Neck: normal visual inspection Thyroid: thyroid normal Lymphatic: no lymphadenopathy noted Chest Breast inspection: normal inspection of the breasts and normal inspection of the axillae Breast palpation: normal palpation of the breasts, normal palpation of the axillae and no axillary lymphadenopathy Resp Effort Inspection: normal respiratory effort GI Palpation: soft, no masses and nontender Rectal Exam: deferred External Female Exam: normal external appearance and normal appearance of the urethra Urethra: normal appearance of the urethra and normal palpation Speculum Exam - Vagina: normal appearance of the vagina and abnormal vaginal discharge frothy and yellow Bimanual Exam- Vagina Uterus: normal bimanual exam, uterine size normal, uterine shape normal and non-tender Bimanual Exam- Ad (more content not included)... Normal [facility] SCRN MAMM (CAD)W/TOM BILATo n 01-05-2024 SCRN MAMM (CAD)W/TOM BILAT [facility] [address] [place] [address] [id number] SCRN MAMM (CAD)W/TOM BILAT MR#: [id number] Acct: [id number] Name: MIYA SHEPPARD ANNMARIE Rep #: [id number] : 1980 F 43 From: Kevin flynn MD PCP: Dr. Maude Hayden, DO Status: REG CLI Study: SCRN MAMM (CAD)W/TOM BILAT Date of Exam: 12/20 10/12 Exam# [id number] Ordering Dr: Janet Reyes SDV PILOT/NAVIGATOR/DDS OPERATOR SDV PILOT/NAVIGATOR/DDS OPERATOR -C [id number] MAMMOGRAPHY - BILATERAL SCREENING REASON FOR EXAM: Female, 43 years old. Routine annual screening examination. PERTINENT HISTORY: Non-contributory. TECHNIQUE: Digital bilateral breast tom (3D mammographic acquisition) in the CC and MLO projections. 2-D mediolateral oblique (MLO) and craniocaudad (CC) views of both breasts were obtained. CAD: Full Field Digital Mammography with Computer Added Detection was performed. COMPARISON: Comparison is made with prior study December 27, 2022 and December 25, 2021. FINDINGS: Breast Composition: The breasts are heterogeneously dense, which may obscure small masses. There are no dominant masses or suspicious calcifications. No other significant abnormalities are identified. There has been no significant change since the prior study. BI/SCRN MAMM (CAD)W/TOM BILAT IMPRESSION: Stable bilateral screening mammogram. Yearly follow-up mammogram recommended. (A) ASSESSMENT CATEGORY: BIRADS Category 1: Negative. A letter regarding these results will be sent to the patient by the facility within 30 days. Approximately 10% of breast cancers are not detected by mammography. A normal mammogram should not delay biopsy of a clinically suspicious abnormality. [id number] Electronically Signed: Kevin Mensah MD at 9:38 EDT , CC: LINDSAY Reyes; Dr. Maude Hayden, Machine Ceramic Coater: Signed Normal [facility] Cervical or vagninal specime n microscopic examination by cytology stain (reported asOrdered By: Janet Reyes on 01-01-2023 Cytology report Cyto stain Doc (Cvx/Vag) Comment . [facility] Comment on above: The Pap smear is a s creening test designed to aid in thedetection of premalignant and malignant conditions of theuterine cervix. It is not a diagnostic procedure andshould not be used as the sole means of detecting cervicalcancer. Both false-positive and false-negative reports dooccur. Chlamydia trachomatis rRNA d etection by probe and target amplification methodOrdered By: Janet Reyes on 01-01-2023 C. trachomatis rRNA DONAVAN+probe Ql (Unsp spec) Negative Negative [facility] Detection in cervical specim en of any of human papilloma virus (HPV) 16, 18, 31, 33,Ordered By: Janet Reyes on 01-01-2023 HPV 16+18+31+33+35+39+45+51 +52+56+58+59+66+68 DNA Probe+sig amp Ql (Cvx) Negative Negative [facility] Comment on above: This nucleic acid am plification test detects fourteen high-risk HPV types (16,18,31,33,35,39,45,51,52,56,58,59,66,68)without differentiation. Gram stain for investigation of transfusion reactionOrdered By: Janet Reyes on 01-01-2023 Microscopic observation Gram stain Nom (Unsp spec) [facility] Laboratory - CytologyOrdered By: Janet Reyes on 01-01-2023 Engine Oiler Cyto stain Nom (Cvx/Vag) [ID] Comment . [facility] Comment on above: Liset Hampton, Cytotech nologist (ASCP) Laboratory - Microbiology an d Antimicrobial susceptibilityOrdered By: Janet Reyes on 01-01-2023 N. gonorrhoeae DNA DONAVAN+probe Ql (Unsp spec) Negative Negative [facility] Comment on above: Performed at: =G [address] [id number] Director: Yas Mejia MD, Phone: [phone] Laboratory - Miscellaneous t estsOrdered By: Janet Reyes on 01-01-2023 Service comment (Unsp spec) [Interp] Comment . [facility] Comment on above: This liquid based Th inPrep(R) pap test was screened withthe use of an image guided system. Service comment (Unsp spec) [Interp] . . [facility] Liquid-based cerv Pap + CT/G C by DONAVAN w reflex to high-risk HPV for ASCUSOrdered By: Janet Reyes on 01-01-2023 Cytology report Cyto stain.thin prep Doc (Cvx/Vag) Comment . [facility] Comment on above: Criteria not met, HP V Genotype not performed.Performed at: [address] [id number] Director: Regi Vee MD, Phone: [phone] at: [address] [id number] Director: Yas Mejia MD, Phone: [phone] at: =[address] [id number] Director: Yas Mejia MD, Phone: [phone] No Panel InformationOrdered By: Janet Reyes on 01-01-2023 Pathology report final diagnosis Narrative Comment . [facility] Comment on above: NEGATIVE FOR INTRAEP ITHELIAL LESION OR MALIGNANCY. No Panel Informationon 01-01 POC Trichomonas (Rapid) Negative [facility] Thin prep Papanicolaou smear with manual screeningOrdered By: Janet Reyes on 01-01-2023 Genital Culture Gardnerella vaginalis [facility] No Panel Informationon 12-25 POC Bacterial Vaginitis (Rapid) Negative [facility] Work Phone: GLUCOSE ([phone])Ordered By: S ystem Nuclear Radiation Engineer on 03-02-2021 Glucose [Mass/Vol] 89 mg/dL Normal 65-99 Compre [facility]; [facility] Work Phone: Comment on above: PATIENT WAS FASTINGP ERFORMED BY: LUCHO Jawfish Gameslin6370 [address] [facility] [id number] LIPID PANEL ([id number])Ordered B y: Industrial Eng on 03-02-2021 Cholesterol [Mass/Vol] 180 mg/dL Normal 100-199 Co mprensive Internal Medicine; [facility] Work Phone: Comment on above: PATIENT WAS FASTINGP ERFORMED BY: LUCHO Live CalendarsJamie [place] [facility] [id number] Cholesterol in HDL [Mass/Vol] 64 mg/dL Normal [facility]; [facility] Work Phone: Comment on above: PATIENT WAS FASTINGP ERFORMED BY: LUCHO José Manuel Ernstlin6370 [address] [facility] [place] [id number] Triglyceride [Mass/Vol] 58 mg/dL Normal 0-149 C [facility]; [facility] Work Phone: Comment on above: PATIENT WAS FASTINGP ERFORMED BY: LUCHO LabCo Arpiat8488 [place] [facility] [id number] LIPID PANEL ([id number]) 11 mg/dL Normal 5-40 Compr ensive [facility]; [facility] Work Phone: Comment on above: PATIENT WAS FASTINGP ERFORMED BY: LUCHO [facility]Saint [facility] Idkera3756 [address] [facility] [place] [id number] LIPID PANEL ([id number]) 105 mg/dL Abnormal 0-99 [facility]; [facility] Work Phone: Comment on above: PATIENT WAS FASTINGP ERFORMED BY: LUCHO LabSaint [facility] Wcsufy0608 [address] [facility] [id number] LIPID PANEL ([id number]) 1.6 {ratio} Normal 0.0-3.2 Comp [facility]; [facility] Work Phone: Comment on above: LDL/HDL Ratio Men Wo men 1/2 Avg.Risk 1.0 1.5 Avg.Risk 3.6 3.2 2X Avg.Risk 6.2 5.0 3X Avg.Risk 8.0 6.1 PATIENT WAS FASTINGP ERFORMED BY: LUCHO LabSaint [facility] Cojwjq5943 [facility] [id number] T3, FREE (TRIDOTHYRONINE) ([id number])Ordered By: Industrial Eng on 03-02-2021 Free T3 [Mass/Vol] 3.0 pg/mL Normal 2.0-4.4 [facility]; [facility] Work Phone: Comment on above: PATIENT WAS FASTINGP ERFORMED BY: Shijiebang6370 [place] [id number] T4, FREE (THYROXINE) ([id number]) Ordered By: Industrial Eng on 03-02-2021 Free T4 [Mass/Vol] 1.20 ng/dL Normal 0.82-1.77 [facility]; [facility] Work Phone: Comment on above: PATIENT WAS FASTINGP ERFORMED BY: Shijiebang6370 [place] [id number] TSH ([id number])Ordered By: Syste m Nuclear Radiation Engineer on 03-02-2021 TSH Qn 1.550 {uIU/mL} Normal 0.450-4.500 [facility]; [facility] Work Phone: Comment on above: PATIENT WAS FASTINGP ERFORMED BY: Shijiebang6370 [facility]isterY[facility] [id number] ALEKSEYOVmarek 04-27-2019 [facility] MIYA SHEPPARD ([id number]) 1980 F Date Time Provider Department 04/27/19 7:45 AM OXANA VIGIL RUST During your visit today, we recorded the following information about you: Temperature Pulse Respiration Blood pressure 98.3 degrees 106/minute 18/minute 110/72 Weight 69.9 kg Oxana Vigil APRN.COLLEGE TEACHER 04/27/2019 8:11 AM Signed Flu (Influenza) What is the flu? The flu is a viral infection of the nose, throat, trachea, and bronchi that occurs every winter. Major epidemics every 3 or 4 years (for example, influenza). The main symptoms are a stuffy nose, sore throat, and nagging cough. There may be more muscle pain, headache, fever, and chills than colds usually cause. For most people, influenza is just a bad cold and bed rest is not necessary. Flu is not dangerous to people who are otherwise healthy. How can I take care of my child? The treatment of flu depends on a child's main symptoms and is no different from the treatment for other viral respiratory infections. Bed rest is not necessary. Fever or aches Use acetaminophen (Tylenol) every 6 hours or ibuprofen (Advil) every 8 hours for fever over 102?F (39?C). Children and adolescents who may have influenza should never take aspirin because it may cause Otilia's syndrome. Cough or hoarseness For children over age 4 give cough drops. If your child is 1 to 4 years old, give corn syrup (1/2 to 1 teaspoon as needed). Sore throat Use hard candy for children over 4 years old. Warm chicken broth may also help children over 1 year old. Stuffy nose Warm-water or saline nosedrops and suction (or nose blowing) will open most blocked noses. Use nasal washes at least four times a day or whenever your child can't breathe through the nose. Saline nosedrops are made by adding 1/2 teaspoon of salt to 1 cup of warm water. Contagiousness Influenza spreads rapidly because the incubation period is only 24 to 36 hours and the virus is very contagious. Your child may return to day care or school after the fever is gone and he feels up to it. Does my child need antiviral medicine? Most healthcare providers do not use antiviral medicines because they only reduce the time that your child is sick by a day or so. Usually the runny nose lasts 7 to 14 days and the cough lasts 2 to 3 weeks. All antiviral medicines must be given within 48 hours of the start of influenza symptoms to have an effect. Antiviral medicine is usually only used to treat children at high-risk for complications from the flu. Talk with your healthcare provider about this. Does my child need a flu shot? Yearly flu shots have always been recommended for high-risk children over 6 months of age. These children often have complications from influenza, such as pneumonia. Parents and siblings of high-risk children should also get a flu shot. Children are considered high-risk if they have the following conditions: Lung disease, such as asthma Heart disease, such as a congenital heart disease Muscle disease, such as muscular dystrophy Metabolic disease, such as diabetes Renal disease, such as nephrotic syndrome Cancer or immune system conditions Diseases requiring long-term aspirin therapy. In 2006, the [place] [employer] added all children age 6 months to 5 years to the list of people who should get a flu shot. Recent research has shown that healthy children younger than 24 months are at as great a risk of complications as children with the high-risk conditions listed above. When should I call my child's healthcare provider? Call IMMEDIATELY if: Your child is having trouble breathing. Your child starts to act very sick. Call during office hours if: Your child develops any complications such as an earache, sinus pain or pressure, or a fever lasting over 3 days. You have other questions or concerns. Published by [employer]. This content is reviewed periodically and is subject to change as new health information becomes available. The information is intended to inform and educate and is not a replacement for medical evaluation, advice, diagnosis or treatment by a healthcare professional. Written by Shai Strong M.D., author of Your Child's Health, [employer]. Copyright ? 2007 [employer] and/or one of its subsidiaries. All Rights Reserved. Copyright ? [employer] Systems 2008 Pediatric Advisor Oxana Vigil APRN.COLLEGE TEACHER 04/27/2019 8:35 AM Signed Subjective HPI Pt presents with <24 hours fever, chills, myalgias, runny nose, cough. tmax 101.8. took one dose tylenol. dx with influenza B last evening, started on Tamiflu. No hx chronic conditions. Exposed to sick contacts on air plane. Received influenza vaccine this season. Review of Systems Constitutional: Positive for chills, fever and malaise/fatigue. HENT: Positive for congestion. Negative for ear pain and sore throat. Respiratory: Positive for cough. Negative for hemoptysis, sputum production, shortness of breath and wheezing. Musculoskeletal: Positive for myalgias. Skin: Negative for rash. Objective Physical Exam Constitutional: She is oriented to person, place, and time and well-developed, well-nourished, and in no distress. No distress. HENT: Head: Normocephalic. Right Ear: Hearing, tympanic membrane, external ear and ear canal normal. Left Ear: Hearing, tympanic membrane, external ear and ear canal normal. Nose: Nose normal. Right sinus exhibits no maxillary sinus tenderness and no frontal sinus tenderness. Left sinus exhibits no maxillary sinus tenderness and no frontal sinus tenderness. Mouth/Throat: Uvula is midline, oropharynx is clear and moist and mucous membranes are normal. No oropharyngeal exudate, posterior oropharyngeal edema, posterior oropharyngeal erythema or tonsillar abscesses. Eyes: Pupils are equal, round, and reactive to light. Conjunctivae are normal. Right eye exhibits no discharge. Left eye exhibits no discharge. Neck: Neck supple. Cardiovascular: Normal rate, regular rhythm and normal heart sounds. Exam reveals no gallop and no friction rub. No murmur heard. Pulmonary/Chest: Effort normal and breath sounds normal. No accessory muscle usage. No tachypnea. No respiratory distress. She has no decreased breath sounds (CTA, good air movement throughout, no cough noted during exam.). She has no wheezes. She has no rhonchi. She has no rales. Lymphadenopathy: She has no cervical adenopathy. Neurological: She is alert and oriented to person, place, and time. Skin: Skin is warm. She is not diaphoretic. BP 110/72 Pulse 106 Temp 36.8 ?C (98.3 ?F) (Tympanic) Resp 18 Wt 69.9 kg (154 lb) SpO2 99% BMI 29.38 kg/m? .Patient presents with: Cough: nasal drainage, bodyaches, headache and chills x last night PAST MEDICAL HISTORY Diagnosis Date - Papanicolaou smear of cervix with atypical squamous cells of undetermined significance (ASC-US) 07/12/10 - Unmedicated IUD 06/03/2012 PAST SURGICAL HISTORY Procedure Laterality Date - CERVICAL BIOPSY OR EXCISION 02/24 polypectomy - COLONOSCOP W/ OR W/O [facility] SPEC 2004 Colonoscopy, normal - INSERT INTRAUTERINE DEVICE 11/19/07, 05/2012 - PAST SURGICAL HISTORY OF 1998, 2002 left foot reconstructive surgery x 2 - REMOVE INTRAUTERINE DEVICE 04/30/11 - REPAIR UMBILICAL SCOTTIE,<5Y/O,REDUC 03/2014 Hernia repair, umbilical <5yr ALLERGIES Darvocet A500 [Propoxyphene N-Acetaminophen] MEDICATIONS Cholecalciferol, Vitamin D3, (VITAMIN D) 1,000 unit cap Take 1 capsule by mouth once daily. oseltamivir (TAMIFLU) 75 mg capsule Take 1 capsule by mouth twice daily for 5 days. guaiFENesin (MUCINEX) 600 mg 12 hr tablet Take 2 tablets by mouth twice daily. benzonatate (TESSALON PERLES) 100 mg capsule Take 1 capsule by mouth three times daily as needed. Tranexamic Acid 650 mg tab Take 2 tablets by mouth every 8 hours. During menses for heavy menstrual bleeding. Maximum of 5 days copper (PARAGARD T 380A) 380 square mm IUD by INTRAUTERINE route. FAMILY HISTORY Problem Relation Age of Onset - Hypertension Mother - other (Unknown) Father - Hypertension Other grand parents - Stroke Maternal Grandfather - Breast Cancer No Family History - Cervical Cancer No Family History - Colon Cancer No Family History - Diabetes No Family History - other (Blood Clot) No Family History Social History Tobacco Use - Smoking status: Never Smoker - Smokeless tobacco: Never Used Substance Use Topics - Alcohol use: Yes Comment: Occasionally - Drug use: No ASSESSMENT/PLAN: 1. Influenza-like illness - ICD9: 799.89, ICD10: R69 - OSELTAMIVIR 75 MG CAPSULE - MUCINEX 600 MG TABLET, EXTENDED RELEASE - BENZONATATE 100 MG CAPSULE Reviewed and printed influenza education and red flag SANDS. The patient is instructed to return or seek emergency treatment if symptoms become worse or with any acute change in condition. The patient verbalizes understanding and is in agreement with plan of care. Oxana Vigil CNP Referring Provider: SELF [[id number]] Allergies As of Date: 04/27/2019 Noted Allergy Reaction DARVOCET A500 (PROPOXYPHENE N-KRISTIN*08/23/2005 Comments: throat swelling Date Reviewed: 04/27/2019 Reviewed by: Portia Peres Ma - Fully Assessed Reason for Visit: Cough [28] Cmt: nasal drainage, bodyaches, headache and chills x last night Primary Visit Diagnosis:Influenza-l lydia illness [R69] Order(s):oseltamivir (TAMIFLU) 75 mg capsuleTake 1 capsule by mouth twice daily for 5 days.Disp: 10 capsuleRfl: 0 guaiFENesin (MUCINEX) 600 mg 12 hr tabletTake 2 tablets by mouth twice daily.Disp: 30 tabletRfl: 0 benzonatate (TESSALON PERLES) 100 mg capsuleTake 1 capsule by mouth three times daily as needed.Disp: 40 capsuleRfl: 0 Prescriptions as of 04/27/2019 Sig: CHOLECALCIFEROL (VITAMIN D3) * Take 1 capsule by mouth once * OSELTAMIVIR 75 MG CAPSULE Take 1 capsule by mouth twice* MUCINEX 600 MG TABLET, EXTEND* Take 2 tablets by mouth twice* BENZONATATE 100 MG CAPSULE Take 1 capsule by mouth three* TRANEXAMIC ACID 650 MG TABLET Take 2 tablets by mouth every* Patient not taking: Reported on 04/27/2019 COPPER 380 SQUARE MM INTRAUTE* by INTRAUTERINE route. Problem List As Of Date 04/27/2019 Noted Resolved Supervision of other normal [Z34.80] 09/06/2011 05/30/2014 Encounter for anatomic survey [Z36.89] 11/01/2011 05/30/2014 Poor growth, affecting management of moth*02/28/2012 05/30/2014 Umbilical hernia [K42.9] 03/09/2014 Decreased libido [R68.82] 07/04/2015 Menorrhagia due to intrauterine device (IUD) (H*07/04/2015 Other instructions from your clinician: Flu (Influenza) What is the flu? The flu is a viral infection of the nose, throat, trachea, and bronchi that occurs every winter. Major epidemics every 3 or 4 years (for example, influenza). The main symptoms are a stuffy nose, sore throat, and nagging cough. There may be more muscle pain, headache, fever, and chills than colds usually cause. For most people, influenza is just a bad cold and bed rest is not necessary. Flu is not dangerous to people who are otherwise healthy. How can I take care of my child? The treatment of flu depends on a child's main symptoms and is no different from the treatment for other viral respiratory infections. Bed rest is not necessary. Fever or aches Use acetaminophen (Tylenol) every 6 hours or ibuprofen (Advil) every 8 hours for fever over 102?F (39?C). Children and adolescents who may have influenza should never take aspirin because it may cause Otilia's syndrome. Cough or hoarseness For children over age 4 give cough drops. If your child is 1 to 4 years old, give corn syrup (1/2 to 1 teaspoon as needed). Sore throat Use hard candy for children over 4 years old. Warm chicken broth may also help children over 1 year old. Stuffy nose Warm-water or saline nosedrops and suction (or nose blowing) will open most blocked noses. Use nasal washes at least four times a day or whenever your child can't breathe through the nose. Saline nosedrops are made by adding 1/2 teaspoon of salt to 1 cup of warm water. Contagiousness Influenza spreads rapidly because the incubation period is only 24 to 36 hours and the virus is very contagious. Your child may return to day care or school after the fever is gone and he feels up to it. Does my child need antiviral medicine? Most healthcare providers do not use antiviral medicines because they only reduce the time that your child is sick by a day or so. Usually the runny nose lasts 7 to 14 days and the cough lasts 2 to 3 weeks. All antiviral medicines must be given within 48 hours of the start of influenza symptoms to have an effect. Antiviral medicine is usually only used to treat children at high-risk for complications from the flu. Talk with your healthcare provider about this. Does my child need a flu shot? Yearly flu shots have always been recommended for high-risk children over 6 months of age. These children often have complications from influenza, such as pneumonia. Parents and siblings of high-risk children should also get a flu shot. Children are considered high-risk if they have the following conditions: Lung disease, such as asthma Heart disease, such as a congenital heart disease Muscle disease, such as muscular dystrophy Metabolic disease, such as diabetes Renal disease, such as nephrotic syndrome Cancer or immune system conditions Diseases requiring long-term aspirin therapy. In 2006, the [place] [employer] added all children age 6 months to 5 years to the list of people who should get a flu shot. Recent research has shown that healthy children younger than 24 months are at as great a risk of complications as children with the high-risk conditions listed above. When should I call my child's healthcare provider? Call IMMEDIATELY if: Your child is having trouble breathing. Your child starts to act very sick. Call during office hours if: Your child develops any complications such as an earache, sinus pain or pressure, or a fever lasting over 3 days. You have other questions or concerns. Published by [employer]. This content is reviewed periodically and is subject to change as new health information becomes available. The information is intended to inform and educate and is not a replacement for medical evaluation, advice, diagnosis or treatment by a healthcare professional. Written by Shai Strong M.D., author of Your Child's Health, [employer]. Copyright ? 2006 [employer] and/or one of its subsidiaries. All Rights Reserved. Copyright ? Clinical Reference Systems 2008 Pediatric Advisor Prescriptions ordered this encounter Disp Refills Start End OSELTAMIVIR 75 MG CAPSULE 10 c* 0 04/27/2019 05/02/2019 Route: ORAL Sig: Take 1 capsule by mouth twice daily for 5 days. MUCINEX 600 MG TABLET, EXTENDED RELE* 30 t* 0 04/27/2019 Route: ORAL Sig: Take 2 tablets by mouth twice daily. BENZONATATE 100 MG CAPSULE 40 c* 0 04/27/2019 Route: ORAL Sig: Take 1 capsule by mouth three times daily as needed. Letter Text Encounter Status:Closed by OXANA VIGIL CNP on 04/27/19 Normal [facility] PROGRESSon 04-27-2019 PROGRESS HNO ID: [id number] Author: Oxana Vigil Service: ? Author Type: Nurse Practitioner Type: Progress Notes Filed: 04/27/2019 8:35 AM Note Text: Subjective HPI Pt presents with <24 hours fever, chills, myalgias, runny nose, cough. tmax 101.8. took one dose tylenol. dx with influenza B last evening, started on Tamiflu. No hx chronic conditions. Exposed to sick contacts on air plane. Received influenza vaccine this season. Review of Systems Constitutional: Positive for chills, fever and malaise/fatigue. HENT: Positive for congestion. Negative for ear pain and sore throat. Respiratory: Positive for cough. Negative for hemoptysis, sputum production, shortness of breath and wheezing. Musculoskeletal: Positive for myalgias. Skin: Negative for rash. Objective Physical Exam Constitutional: She is oriented to person, place, and time and well-developed, well-nourished, and in no distress. No distress. HENT: Head: Normocephalic. Right Ear: Hearing, tympanic membrane, external ear and ear canal normal. Left Ear: Hearing, tympanic membrane, external ear and ear canal normal. Nose: Nose normal. Right sinus exhibits no maxillary sinus tenderness and no frontal sinus tenderness. Left sinus exhibits no maxillary sinus tenderness and no frontal sinus tenderness. Mouth/Throat: Uvula is midline, oropharynx is clear and moist and mucous membranes are normal. No oropharyngeal exudate, posterior oropharyngeal edema, posterior oropharyngeal erythema or tonsillar abscesses. Eyes: Pupils are equal, round, and reactive to light. Conjunctivae are normal. Right eye exhibits no discharge. Left eye exhibits no discharge. Neck: Neck supple. Cardiovascular: Normal rate, regular rhythm and normal heart sounds. Exam reveals no gallop and no friction rub. No murmur heard. Pulmonary/Chest: Effort normal and breath sounds normal. No accessory muscle usage. No tachypnea. No respiratory distress. She has no decreased breath sounds (CTA, good air movement throughout, no cough noted during exam.). She has no wheezes. She has no rhonchi. She has no rales. Lymphadenopathy: She has no cervical adenopathy. Neurological: She is alert and oriented to person, place, and time. Skin: Skin is warm. She is not diaphoretic. BP 110/72 Pulse 106 Temp 36.8 ?C (98.3 ?F) (Tympanic) Resp 18 Wt 69.9 kg (154 lb) SpO2 99% BMI 29.38 kg/m? .Patient presents with: Cough: nasal drainage, bodyaches, headache and chills x last night PAST MEDICAL HISTORY Diagnosis Date - Papanicolaou smear of cervix with atypical squamous cells of undetermined significance (ASC-US) 07/12/10 - Unmedicated IUD 06/03/2012 PAST SURGICAL HISTORY Procedure Laterality Date - CERVICAL BIOPSY OR EXCISION 02/24 polypectomy - COLONOSCOP W/ OR W/O [facility] SPEC 2004 Colonoscopy, normal - INSERT INTRAUTERINE DEVICE 11/19/07, 05/2012 - PAST SURGICAL HISTORY OF 1998, 2002 left foot reconstructive surgery x 2 - REMOVE INTRAUTERINE DEVICE 04/30/11 - REPAIR UMBILICAL SCOTTIE,<5Y/O,REDUC 03/2014 Hernia repair, umbilical <5yr ALLERGIES Darvocet A500 [Propoxyphene N-Acetaminophen] MEDICATIONS Cholecalciferol, Vitamin D3, (VITAMIN D) 1,000 unit cap Take 1 capsule by mouth once daily. oseltamivir (TAMIFLU) 75 mg capsule Take 1 capsule by mouth twice daily for 5 days. guaiFENesin (MUCINEX) 600 mg 12 hr tablet Take 2 tablets by mouth twice daily. benzonatate (TESSALON PERLES) 100 mg capsule Take 1 capsule by mouth three times daily as needed. Tranexamic Acid 650 mg tab Take 2 tablets by mouth every 8 hours. During menses for heavy menstrual bleeding. Maximum of 5 days copper (PARAGARD T 380A) 380 square mm IUD by INTRAUTERINE route. FAMILY HISTORY Problem Relation Age of Onset - Hypertension Mother - other (Unknown) Father - Hypertension Other grand parents - Stroke Maternal Grandfather - Breast Cancer No Family History - Cervical Cancer No Family History - Colon Cancer No Family History - Diabetes No Family History - other (Blood Clot) No Family History Social History Tobacco Use - Smoking status: Never Smoker - Smokeless tobacco: Never Used Substance Use Topics - Alcohol use: Yes Comment: Occasionally - Drug use: No ASSESSMENT/PLAN: 1. Influenza-like illness - ICD9: 799.89, ICD10: R69 - OSELTAMIVIR 75 MG CAPSULE - MUCINEX 600 MG TABLET, EXTENDED RELEASE - BENZONATATE 100 MG CAPSULE Reviewed and printed influenza education and red flag SANDS. The patient is instructed to return or seek emergency treatment if symptoms become worse or with any acute change in condition. The patient verbalizes understanding and is in agreement with plan of care. Oxana Vigil, COLLEGE TEACHER Normal [facility] Anti TPO Antibody ([id number])Ord ered By: Industrial Eng on 03-08-2019 TPO Ab Qn 8 {IU/mL} Normal 0-34 [facility]; [facility] Work Phone: Comment on above: PATIENT WAS FASTINGP ERFORMED BY: [id number] [facility] [id number] TPO Ab Qn 8 [IU]/mL Normal 0-34 [facility]; [facility] Work Phone: Comment on above: PATIENT WAS FASTINGP ERFORMED BY: [id number] [facility] [id number] T3, FREE (TRIDOTHYRONINE) ([id number])Ordered By: Industrial Eng on 12-10-2018 Free T3 [Mass/Vol] 3.3 pg/mL Normal 2.0-4.4 [facility] Work Phone: Comment on above: PATIENT NOT FASTINGP ERFORMED BY: [facility] [id number] T4, FREE (THYROXINE) ([id number]) Ordered By: Industrial Eng on 12-10-2018 Free T4 [Mass/Vol] 1.38 ng/dL Normal 0.82-1.77 [facility] Work Phone: Comment on above: PATIENT NOT FASTINGP ERFORMED BY: LUCHO [facility] Awvlke[address]Dublin [place] [id number] TSH ([id number])Ordered By: Vivian m Nuclear Radiation Engineer on 12-10-2018 TSH Qn 1.320 {uIU/mL} Normal 0.450-4.500 [facility] Internal Medicine Work Phone: Comment on above: PATIENT NOT FASTINGP ERFORMED BY: LUCHO [facility] Kratax8[address] RoadDublin [place] [id number] GLUCOSE ([id number])Ordered By: S ystem Nuclear Radiation Engineer on 12-19-2017 Glucose [Mass/Vol] 84 mg/dL Normal 65-99 [facility] Work Phone: Comment on above: PATIENT WAS FASTINGP ERFORMED BY: LUCHO [facility] Roznsy[address]Dublin [place] [id number] LIPID PANEL ([id number])Ordered B y: Industrial Eng on 12-19-2017 Cholesterol [Mass/Vol] 167 mg/dL Normal 100-199 [facility] Medicine Work Phone: Comment on above: PATIENT WAS FASTINGP ERFORMED BY: CB [facility] [id number]Dublin [place] [id number] Cholesterol in HDL [Mass/Vol] 70 mg/dL Normal [facility] Work Phone: Comment on above: PATIENT WAS FASTINGP ERFORMED BY: CB [facility] Pqqxld89[address] RoadDublin [place] [id number] Cholesterol in LDL [Mass/Vol] 88 mg/dL Normal 0-99 [facility] Work Phone: Comment on above: PATIENT WAS FASTINGP ERFORMED BY: CB [facility] [id number]Dublin [place] [id number] Cholesterol in LDL/Cholesterol in HDL [Mass ratio] 1.3 {ratio} Normal 0.0-3.2 [facility] Medicine Work Phone: Comment on above: LDL/HDL Ratio Men Wo men 1/2 Avg.Risk 1.0 1.5 Avg.Risk 3.6 3.2 2X Avg.Risk 6.2 5.0 3X Avg.Risk 8.0 6.1 PATIENT WAS FASTINGP ERFORMED BY: [facility] Lyyqfc[address] PaytellerNorthern Regional Hospitalin [place] [id number] Cholesterol in VLDL [Mass/Vol] 9 mg/dL Normal 5-40 [facility] Work Phone: Comment on above: PATIENT WAS FASTINGP ERFORMED BY: [facility] Sdsnwd[address] PaytellerF[facility] [id number] Triglyceride [Mass/Vol] 47 mg/dL Normal 0-149 [facility] Work Phone: Comment on above: PATIENT WAS FASTINGP ERFORMED BY: [facility] [id number] [facility] [id number] T3, FREE (TRIDOTHYRONINE) ([id number])Ordered By: Industrial Eng on 12-19-2017 Free T3 [Mass/Vol] 3.3 pg/mL Normal 2.0-4.4 [facility] Work Phone: Comment on above: PATIENT WAS FASTINGP ERFORMED BY: [facility] Seakxz8595 [facility] [id number] T4, FREE (THYROXINE) ([id number]) Ordered By: Industrial Eng on 12-19-2017 Free T4 [Mass/Vol] 1.44 ng/dL Normal 0.82-1.77 [facility] Work Phone: Comment on above: PATIENT WAS FASTINGP ERFORMED BY: [facility] Vgoxns[address] [facility] [place] [id number] TSH ([id number])Ordered By: Kyndede m Nuclear Radiation Engineer on 12-19-2017 TSH Qn 1.520 {uIU/mL} Normal 0.450-4.500 [facility] Internal Medicine Work Phone: Comment on above: PATIENT WAS FASTINGP ERFORMED BY: [facility] Dthbuc9479 [facility] [id number] Gram stain for investigation of transfusion reaction Microscopic observation Gram stain Nom (Unsp spec) [facility] Work Phone: Thin prep Papanicolaou smear with manual screening Cytopathology procedure, preparation of smear, genital source Neisseria or beta-hemolytic Streptococcus isolated. [facility] Work Phone: Vital Signs Date Time Vital Sign Value Performing Clinician Facility 01-05-2025 08:10-0400 Body height 154.[address] Maude Hayden DO Work Phone: [facility] 01-05-2025 08:04-0400 Body mass index (BMI) [Ratio] 30.4 kg/m2 Dr. Maude Hayden DO Work Phone: [facility] 01-05-2025 08:04-0400 Body weight 73.[address] [facility]ude Hayden DO [facility] [place] 01-05-2025 08:04-0400 Diastolic blood pressure 79 mm[Hg] Dr. Maude Hayden DO Work Phone: [facility] [place] 01-05-2025 08:04-0400 Systolic blood pressure 130 mm[Hg] Dr. Maude Hayden DO Work Phone: [facility] [place] 01-01-2023 08:20-0400 Body height 154.94 cm DO Maude Hayden [facility] 01-01-2023 08:15-0400 Body mass index (BMI) [Ratio] 28.2 kg/m2 DO Maude Hayden [facility] 01-01-2023 08:15-0400 Body weight 67.69 kg DO Maude Hayden [facility] 01-01-2023 08:15-0400 Diastolic blood pressure 72 mm[Hg] DO Maude Hayden [facility] 01-01-2023 08:15-0400 Systolic blood pressure 112 mm[Hg] DO Maude Hayden [facility] 11-04-2022 11:08-0400 Body height 154.94 cm Maritza Winston [employer] [facility] Work Phone: 11-04-2022 11:08-0400 Body mass index (BMI) [Ratio] 28.22 kg/m2 Maritza Slarb [employer] [facility] Work Phone: 11-04-2022 11:08-0400 Body surface area Derived from formula 1.67 m2 Maritza Slarb [employer] [facility] Work Phone: 11-04-2022 11:08-0400 Body temperature 97.1 [degF] Maritza Slarb [employer] [facility] Work Phone: Comment on above: Method: Temporal 11-04-2022 11:08-0400 Body weight 67.76 kg Maritza Johnyrb [employer] [facility] Work Phone: 11-04-2022 11:08-0400 Diastolic blood pressure 72 mm[Hg] Maritza Slarb [employer] [facility] Work Phone: Comment on above: Patient Position: Sitting; Cuff Location : Left Arm; Cuff Size: Standard 11-04-2022 11:08-0400 Heart rate 82 /min Maritza Johnyrb [employer] [facility] Work Phone: Comment on above: Pattern: Regular 11-04-2022 11:08-0400 Respiratory rate 16 /min Maritza Slarb [employer] [facility] Work Phone: Comment on above: Pattern: Unlabored 11-04-2022 11:08-0400 SaO2% (BldA) [Mass fraction] 99 % Maritza Slarb [employer] [facility] Work Phone: Comment on above: Room air 11-04-2022 11:08-0400 Systolic blood pressure 102 mm[Hg] Maritza Slarb [employer] [facility] Work Phone: Comment on above: Patient Position: Sitting; Cuff Location : Left Arm; Cuff Size: Standard 12-25-2021 08:32-0400 Body height 154.94 cm DO [facility] Work Phone: 12-25-2021 08:31-0400 Body mass index (BMI) [Ratio] 30.9 kg/m2 DO [facility] Work Phone: 12-25-2021 08:31-0400 Body weight 74.38 kg DO [facility] Work Phone: 12-25-2021 08:31-0400 Diastolic blood pressure 74 mm[Hg] DO [facility] Work Phone: 12-25-2021 08:31-0400 Systolic blood pressure 100 mm[Hg] DO [facility] Work Phone: 03-01-2021 07:13-0500 Body height 154.94 cm Latisha Escobar LPN [facility] Work Phone: 03-01-2021 07:13-0500 Body mass index (BMI) [Ratio] 30.3 kg/m2 Latisha Escobar LPN [facility] Work Phone: 03-01-2021 07:13-0500 Body surface area Derived from formula 1.72 m2 Latisha Escobar LPN [facility] Work Phone: 03-01-2021 07:13-0500 Body temperature 97.3 [degF] Latisha Escobar LPN [facility] Work Phone: Comment on above: Method: Temporal 03-01-2021 07:13-0500 Body weight 72.75 kg Latisha Escobar LPN [facility] Work Phone: 03-01-2021 07:13-0500 Diastolic blood pressure 70 mm[Hg] Latisha Escobar LPN [facility] Work Phone: Comment on above: Patient Position: Sitting; Cuff Location : Left Arm; Cuff Size: Standard 03-01-2021 07:13-0500 Heart rate 66 /min Latisha Escobar WA[employer] AND [employer] [facility] Work Phone: Comment on above: Pattern: Regular 03-01-2021 07:13-0500 Respiratory rate 16 /min Latisha Escobar WA[employer] AND [employer] [facility] Work Phone: Comment on above: Pattern: Unlabored 03-01-2021 07:13-0500 SaO2% (BldA) [Mass fraction] 99 % Latisha Escobar WA[employer] AND C[employer] [facility] Work Phone: Comment on above: Room air 03-01-2021 07:13-0500 Systolic blood pressure 100 mm[Hg] Latisha Escobar WA[employer] AND C[employer] [facility] Work Phone: Comment on above: Patient Position: Sitting; Cuff Location : Left Arm; Cuff Size: Standard 11-29-2020 10:39-0400 Body height 154.94 cm Latisha Escobar ANIBAL [facility] Work Phone: 11-29-2020 10:39-0400 Body mass index (BMI) [Ratio] 31.81 kg/m2 Latisha Escobar WA[employer] AND C[employer] [facility] Work Phone: 11-29-2020 10:39-0400 Body surface area Derived from formula 1.76 m2 Laitsha Escobar ANIBAL [facility] Work Phone: 11-29-2020 10:39-0400 Body temperature 97.1 [degF] Latisha Escobar WA[employer] AND [employer] [facility] Work Phone: Comment on above: Method: Temporal 11-29-2020 10:39-0400 Body weight 76.37 kg Latisha Escobar ANIBAL [facility] Work Phone: 11-29-2020 10:39-0400 Diastolic blood pressure 90 mm[Hg] Latisha Luz ANIBAL [facility] Work Phone: Comment on above: Patient Position: Sitting; Cuff Location : Left Arm; Cuff Size: Standard 11-29-2020 10:39-0400 Heart rate 101 /min Latisha Escobar WA[employer] AND C[employer] [facility] Work Phone: Comment on above: Pattern: Regular 11-29-2020 10:39-0400 Respiratory rate 16 /min Latisha Escobar WA[employer] AND C[employer] [facility] Work Phone: Comment on above: Pattern: Unlabored 11-29-2020 10:39-0400 SaO2% (BldA) [Mass fraction] 97 % Latisha Escobar WA[employer] AND C[employer]IER [facility] Work Phone: Comment on above: Room air 11-29-2020 10:39-0400 Systolic blood pressure 120 mm[Hg] Latisha Escobar WAITER AND C[employer]IER [facility] Work Phone: Comment on above: Patient Position: Sitting; Cuff Location : Left Arm; Cuff Size: Standard 03-03-2019 08:32-0500 BMI (Body Mass Index) 29.31 kg/m2 Maritza Johnyrb WAITER AND C[employer]IER [facility] Work Phone: 03-03-2019 08:32-0500 Body Temperature 99 [degF] Maritza Johnyrb WAITER AND C[employer]IER [facility] Work Phone: Comment on above: Method: Temporal 03-03-2019 08:32-0500 Body weight 70.36 kg Maritza Mcclainrb WAITER AND CASHIER [facility] Work Phone: 03-03-2019 08:32-0500 BP Diastolic 80 mm[Hg] Maritza Slarb WAITER AND C[employer]IER [facility] Work Phone: Comment on above: Patient Position: Sitting; Cuff Location : Left Arm; Cuff Size: Standard 03-03-2019 08:32-0500 BP Systolic 122 mm[Hg] Maritza Slarb WAITER AND C[employer]IER [facility] Work Phone: Comment on above: Patient Position: Sitting; Cuff Location : Left Arm; Cuff Size: Standard 03-03-2019 08:32-0500 BSA (Body Surface Area) 1.7 m2 Maritza Winston LPN [facility] Work Phone: 03-03-2019 08:32-0500 Height 154.94 cm Maritza Winston LPN [facility] Work Phone: 03-03-2019 08:32-0500 Pulse (Heart Rate) 84 /min Maritza Winston LPN [facility] Work Phone: Comment on above: Pattern: Regular 03-03-2019 08:32-0500 Pulse Oximetry 98 % Maude Hayden [facility] Work Phone: Comment on above: Room air 03-03-2019 08:32-0500 Respiratory Rate 16 /min Maritza Winston LPN [facility] Work Phone: Comment on above: Pattern: Unlabored 03-03-2019 08:32-0500 SaO2% (BldA) [Mass fraction] 98 % Maritza Winston LPN [facility] Work Phone: Comment on above: Room air 12-10-2018 08:34-0400 BMI (Body Mass Index) 29.57 kg/m2 Keisha Ware [facility] Work Phone: 12-10-2018 08:34-0400 Body Temperature 97.3 [degF] Keisha Ware RECORD [employer]ODUCER [facility] Work Phone: Comment on above: Method: Temporal 12-10-2018 08:34-0400 Body weight 70.99 kg Keisha Ware [facility] Work Phone: 12-10-2018 08:34-0400 BP Diastolic 70 mm[Hg] Keisha Ware [facility] Work Phone: Comment on above: Patient Position: Sitting; Cuff Location : Left Arm; Cuff Size: Standard 12-10-2018 08:34-0400 BP Systolic 128 mm[Hg] Keisha Ware [facility] Work Phone: Comment on above: Patient Position: Sitting; Cuff Location : Left Arm; Cuff Size: Standard 12-10-2018 08:34-0400 BSA (Body Surface Area) 1.7 m2 Keisha Ware CMA [facility] Work Phone: 12-10-2018 08:34-0400 Height 154.94 cm Keisha Ware CMA [facility] Work Phone: 12-10-2018 08:34-0400 Pulse (Heart Rate) 78 /min Keisha Ware CMA [facility] Work Phone: Comment on above: Pattern: Regular 12-10-2018 08:34-0400 Pulse Oximetry 98 % Maude Hayden [facility] Work Phone: Comment on above: Room air 12-10-2018 08:34-0400 Respiratory Rate 18 /min Keisha Ware CMA [facility] Work Phone: Comment on above: Pattern: Unlabored 12-10-2018 08:34-0400 SaO2% (BldA) [Mass fraction] 98 % Keisha Ware [facility] Work Phone: Comment on above: Room air 01-09-2018 13:56-0400 BMI (Body Mass Index) 29.57 kg/m2 Amy Hunt RN [facility] Work Phone: 01-09-2018 13:56-0400 Body Temperature 95.2 [degF] Amy Hunt RN [facility] Work Phone: Comment on above: Method: Temporal 01-09-2018 13:56-0400 Body weight 70.99 kg Amy Hunt RN [facility] Work Phone: 01-09-2018 13:56-0400 BP Diastolic 78 mm[Hg] Amy Hunt RN [facility] Work Phone: Comment on above: Patient Position: Sitting; Cuff Location : Left Arm; Cuff Size: Large 01-09-2018 13:56-0400 BP Systolic 116 mm[Hg] Amy Hunt RN [facility] Work Phone: Comment on above: Patient Position: Sitting; Cuff Location : Left Arm; Cuff Size: Large 01-09-2018 13:56-0400 BSA (Body Surface Area) 1.7 m2 Amy Hunt RN [facility] Work Phone: 01-09-2018 13:56-0400 Height 154.94 cm Amy Hunt RN [facility] Work Phone: 01-09-2018 13:56-0400 Pulse (Heart Rate) 91 /min Amy Hunt RN [facility] Work Phone: Comment on above: Pattern: Regular 01-09-2018 13:56-0400 Pulse Oximetry 95 % Maude Hayden [facility] Work Phone: Comment on above: Room air 01-09-2018 13:56-0400 Respiratory Rate 16 /min Amy Hunt RN [facility] Work Phone: Comment on above: Pattern: Unlabored 01-09-2018 13:56-0400 SaO2% (BldA) [Mass fraction] 95 % Amy Hunt RN [facility] Work Phone: Comment on above: Room air 12-19-2017 07:23-0400 BMI (Body Mass Index) 29.57 kg/m2 Amy Hunt RN [facility] Work Phone: 12-19-2017 07:23-0400 Body weight 70.99 kg Amy Hunt RN [facility] Work Phone: 12-19-2017 07:23-0400 BP Diastolic 64 mm[Hg] Amy Hunt RN [facility] Work Phone: Comment on above: Patient Position: Sitting; Cuff Location : Left Arm; Cuff Size: Large 12-19-2017 07:23-0400 BP Systolic 128 mm[Hg] Amy Hunt RN [facility] Work Phone: Comment on above: Patient Position: Sitting; Cuff Location : Left Arm; Cuff Size: Large 12-19-2017 07:23-0400 BSA (Body Surface Area) 1.7 m2 Amy Hunt RN [facility] Work Phone: 12-19-2017 07:23-0400 Height 154.94 cm Amy Hunt RN [facility] Work Phone: 12-19-2017 07:23-0400 Pulse (Heart Rate) 70 /min Amy Hunt RN [facility] Work Phone: Comment on above: Pattern: Regular 12-19-2017 07:23-0400 Pulse Oximetry 98 % Maude Hayden [facility] Work Phone: Comment on above: Room air 12-19-2017 07:23-0400 Respiratory Rate 18 /min Amy Hunt RN [facility] Work Phone: Comment on above: Pattern: Unlabored 12-19-2017 07:23-0400 SaO2% (BldA) [Mass fraction] 98 % Amy Hunt RN [facility] Work Phone: Comment on above: Room air Encounters Encounter Date Encounter Type Care Provider Facility Start: 01-06-2025 ambulatory Janet Reyes NP Facil ity:[facility] [place] Start: 01-05-2025 End: 01-05-2025 ambulatory Maudened Hayden Facility:[facility] Start: 01-05-2025 End: 01-05-2025 Patient encounter procedure Janet Reyes SDV PILOT/NAVIGATOR/DDS OPERATOR-C -[facility] Work Phone: Start: 01-05-2025 End: 01-05-2025 Patient encounter status Janet Reyes SDV PILOT/NAVIGATOR/DDS OPERATOR-C [facility] [place] Start: 01-05-2024 End: 01-05-2024 ambulatory Maude Hayden Facility:[facility] Start: 01-05-2024 End: 01-05-2024 ambulatory Maudebeau Hayden Facility:[facility] [place] Start: 01-01-2023 End: 01-01-2023 ambulatory DO Maude Hayden [facility] Work Phone: Start: 01-01-2023 End: 01-01-2023 Patient encounter procedure DO Maude Hayden [facility], Specimen Work Phone: Start: 01-01-2023 End: 01-01-2023 Patient encounter procedure DO Maude Hayden BINA [facility] Work Phone: Start: 12-27-2022 End: 12-27-2022 Patient encounter procedure DO Maude CURRAN [facility] [place] Work Phone: Start: 11-07-2022 End: 11-07-2022 Annotation/Addendum Maude Desaion DO Work Phone: [facility] Start: 11-04-2022 End: 11-04-2022 Office outpatient visit 15 minutes Maude Hayden DO Work Phone: [facility] Start: 11-04-2022 Review Maude Calhoun n DO Work Phone: [facility] Start: 12-25-2021 End: 12-25-2021 ambulatory DO Maude Hayden [facility] [place] Work Phone: Start: 12-25-2021 End: 12-25-2021 Patient encounter procedure DO Maude Hayden [facility] Start: 03-01-2021 End: 03-01-2021 Patient encounter status Maude Hayden DO Work Phone: [facility] Start: 03-01-2021 End: 03-01-2021 Periodic preventive med est patient 40-64yrs Maude Catracho DO Work Phone: [facility] Start: 12-15-2020 End: 12-15-2020 Phone Encounter Maude Hayden DO Work Phone: [facility] Start: 11-29-2020 End: 11-29-2020 Phone Encounter Maude Catracho DO Work Phone: [facility] Start: 11-29-2020 End: 11-29-2020 Annotation/Addendum Maude Catracho DO Work Phone: [facility] Start: 11-29-2020 End: 11-29-2020 Office outpatient visit 25 minutes Maude Catracho DO Work Phone: [facility] Start: 06-06-2020 End: 06-06-2020 Annotation/Addendum Maude Desaion [facility] Start: 03-05-2019 End: 03-05-2019 Phone Encounter Maude Hayden [facility] Start: 03-03-2019 End: 03-03-2019 Office outpatient visit 15 minutes Maude Hayden [facility] Start: 12-10-2018 End: 12-10-2018 Office outpatient visit 25 minutes Maude Hayden [facility] Start: 12-10-2018 Review Maude Hayden [facility] [place] [facility] Start: 01-09-2018 End: 01-09-2018 Phone Encounter Maude Hayden [facility] Start: 01-09-2018 End: 01-09-2018 Office outpatient visit 15 minutes Maude Hayden [facility] Start: 12-19-2017 End: 12-19-2017 Initial preventive medicine new pt age 18-39yrs Maude Hayden [facility] Start: 12-19-2017 End: 12-19-2017 Patient encounter procedure Maude Hayden DO Work Phone: [facility] Patient encounter procedure Latisha Escobar WAITER AND CASHIER [facility] Work Phone: Patient encounter status Maude Hayden DO Work Phone: [facility] Work Phone: Patient encounter status Maritza Tish WAITER AND C[employer]IER [facility] Work Phone: Procedures Date Procedure Procedure Detail Performing Clinician Start: 01-01-2023 Cytopathology procedure, preparation of smear, genital source DO Maude Hayden [facility] Start: 01-01-2023 Investigation of transfusion reaction DO Maude Hayden [facility] Start: 12-27-2022 Screening mammography D O Maude Hayden [facility] Start: 12-27-2022 US scan of thyroid DO Kamran Hayden OLS Start: 12-25-2021 Screening mammography D O Maude Hayden Start: 12-18-2020 End: 12-18-2020 CT Abd/Pelvis W/WO Contrast Comments: See Note; NOTES: [facility] Imaging Services [address] [place] [address] CT Abd/Pelvis W/WO Contrast MR#: [id number] Acct: [id number] Name: MIYA SHEPPARD ANNMARIE Rep #: [id number] : 1980 F 40 From: Thai Neville MD PCP: Maude Hayden DO Status: REG CLI Study: CT Abd/Pelvis W/WO Contrast Date of Exam: 11/21 Exam# [id number] Ordering Dr: Maude Hayden DO STUDY: CT ABDOMEN WITH AND WITHOUT IV CONTRAST; CT PELVIS WITH CONTRAST REASON FOR EXAM: Female, 40 years old. LIVER MASS,LEFT LOBE -- CONCENTRATE ON LIVER MASS PROTOCOL RADIATION DOSAGE (If Supplied By Facility): CTDIvol = ( 11.49 ) mGy, DLP = ( 1542.01 ) mGycm TECHNIQUE: Transaxial images were obtained from the dome of the diaphragm to the symphysis pubis without oral contrast. IV 100mL Isovue-[id number] was administered. Imaging of the abdomen and pelvis was performed according to liver protocol without and with IV contrast. Sagittal and coronal images were reconstructed. Individualized dose optimization techniques were used for this CT. COMPARISON: 12/14/2020 FINDINGS: The visualized lung bases are unremarkable. The visualized portions of the heart are within normal limits. 2.0 x 2.3 cm low-density lesion of the posterior left hepatic lobe is redemonstrated with peripheral enhancement and subsequent progressive filling, compatible with hemangioma (benign). 7 mm enhancing lesion of the posterior left hepatic lobe (lateral segment) on image 22 of series 3) is also compatible with hemangioma. Subtle low density lesion of the anterior medial segment left hepatic lobe on image 5 of series 2 measures 1 cm with peripheral enhancement (inconspicuous on delayed imaging), also compatible with hemangioma. Normal gallbladder and extrahepatic biliary system. Normal spleen. Normal pancreas. Normal bilateral adrenal glands. Normal right kidney. Normal left kidney. Normal visualized stomach. Normal small intestine. Normal colon. The appendix is visualized and appears normal. Normal abdominal aorta. Normal inferior vena cava. Normal retroperitoneum. Normal urinary bladder. Normal abdominal wall. Normal osseous structures. CT/CT Abd/Pelvis W/WO Contrast IMPRESSION: 1. Multiple hepatic hemangiomata (benign) including 2.0 x 2.[address] lesion evident on [address] of 12/14/2020. ACR White Paper guidelines (Estelita, et al. JACR 2017; 14(11):7854-2912.) suggest no follow-up is necessary. Electronically Signed: Thai Neville MD ([place]) at 8:00 EDT , Service support , CC: Dr. Maude Hayden DO; Maude Hayden DO [employer] Co[employer]: Signed Maude Hayden DO Work Phone: Start: 12-14-2020 End: 12-14-2020 Abdomen/Pelvis without Cont Comments: See Note; NOTES: [facility] Imaging Services [address] [place] [address] Abdomen/Pelvis without Cont MR#: [id number] Acct: [id number] Name: MIYA SHEPPARD ANNMARIE Rep #: [id number] : 1980 F 40 From: Jose Zavala MD PCP: Maude Hayden DO Status: REG CLI Study: Abdomen/Pelvis without Cont Date of Exam: 11/20 10/09 Exam# [id number] Ordering Dr: Maude Hayden DO STUDY: CT ABDOMEN AND PELVIS WITHOUT CONTRAST REASON FOR EXAM: Female, 40 years old. STONE PROTOCOL RADIATION DOSAGE (If Supplied By Facility): CTDIvol = ( 9.07 ) mGy, DLP = ( 558.84 ) mGycm TECHNIQUE: Transaxial images were obtained from the dome of the diaphragm to the symphysis pubis without oral contrast, and without intravenous contrast. Sagittal and coronal images were reconstructed. Individualized dose optimization techniques were used for this CT. COMPARISON: None. FINDINGS: The visualized lung bases are unremarkable. The visualized portions of the heart are within normal limits. 2 cm mass of decreased attenuation the posterior aspect lateral segment left lobe of the liver and correlation with liver mass protocol CT is recommended. Normal gallbladder and extrahepatic biliary system. Normal spleen. Normal pancreas. Normal bilateral adrenal glands. Normal right kidney. Normal left kidney. Normal visualized stomach. Normal small intestine. Normal colon. The appendix is visualized and appears normal. Normal abdominal aorta. Normal inferior vena cava. Normal retroperitoneum. Normal urinary bladder. Normal abdominal wall. Normal osseous structures. CT/Abdomen/Pelvis without Cont IMPRESSION: 1. No renal or ureteral stone. 2. 2 cm mass in the lateral segment left lobe of the liver and correlation with liver mass protocol is recommended. Electronically Signed: Jose Zavala MD at 16:37 EDT Tel , Service support , CC: Dr. Maude Hayden DO; Maude Hayden DO [employer]: Signed Maude Hayden DO Work Phone: Start: 11-29-2020 End: 11-29-2020 Ribs Uni Min 3V w/PA Chest Comments: See Note; NOTES: [facility] [address] [place] [address] Ribs Uni Min 3V w/PA Chest MR#: [id number] Acct: [id number] Name: MIYA SHEPPARD ANNMARIE Rep #: [id number] : 1980 F 40 From: Michael Matson DO PCP: Maude Hayden DO Status: DEP AMB Study: Ribs Uni Min 3V w/PA Chest Date of Exam: 11/29 Exam# [id number] Ordering Dr: Maude Hayden DO STUDY: X-RAY - UNILATERAL RIBS ( RIGHT ) WITH CHEST REASON FOR EXAM: Female, 40 years old. Increasing lower posterior axillary rib pain. Feels like something is under the rib cage. TECHNIQUE - RIBS: 2 view(s) of the ribs. TECHNIQUE - CHEST: Single PA view of the chest. COMPARISON: None. FINDINGS - RIBS: Normal visualized ribs without a demonstrated fracture. FINDINGS - CHEST: The lungs are clear and expanded. There is no demonstrated pleural abnormality. Normal size heart. Normal mediastinum and kentrell. Normal visualized pulmonary arteries. Normal visualized aortic arch and descending thoracic aorta. Normal visualized thoracic spine. Normal visualized ribs, clavicles, and shoulders. There is no demonstrated abnormality of the visualized soft tissue structures of the upper abdomen. RAD/Ribs Uni Min 3V w/PA Chest IMPRESSION: RIBS: Normal x-ray examination of the ribs. CHEST: Normal x-ray examination of the chest. Electronically Signed: Michael Matson DO at 16:11 EDT Tel [phone], Service support , CC: Dr. Maude Hayden DO; Maude Hayden DO [employer]: Signed Maude Hayden DO Work Phone: Start: 06-07-2020 End: 06-07-2020 Breast Limited Unilateral Comments: See Note; NOTES: [facility] Imaging Services [address] [place] [id number] Breast Limited Unilateral MR#: [id number] Acct: [id number] Name: SHEPPARDMCKINLEY GANYuli ANGUIANO Rep #: [id number] : 1980 F 39 From: Kevin flynn MD PCP: Maude Hayden DO Status: REG CLI Study: Breast Limited Unilateral Date of Exam: Exam# [id number] Ordering Dr: Maude Hayden DO STUDY: ULTRASOUND BREAST - RIGHT REASON FOR EXAM: Female, 39 years old. Deep right palpable abnormality. TECHNIQUE: Axial and longitudinal images of the RIGHT breast were performed with a high resolution ultrasound transducer. # OF IMAGES: 22 COMPARISON: Comparison is made with prior mammogram done earlier today. FINDINGS: RIGHT Breast: The palpable abnormality in the deep inferior lateral portion of the right breast corresponds to a palpable pectoralis muscle. US/Breast Limited Unilateral IMPRESSION: No sonographic abnormality is seen. ASSESSMENT CATEGORY: BIRADS Category 1: Negative. A letter regarding these results will be sent to the patient by the facility within 30 days. Electronically Signed: Kevin Mensah MD at 10:35 EST , Service support , CC: Dr. Maude Hayden DO; Maude Hayden DO Machine Ceramic Coater: Signed Maude Hayden Work Phone: Start: 06-07-2020 End: 06-07-2020 DIAG MAMM W/CAD, BILAT Comments: See Note; NOTES: [facility] Services [address] [place] [address] DIAG MAMM W/CAD, BILAT MR#: [id number] Acct: [id number] Name: MIYA SHEPPARD ANNMARIE Rep #: [id number] : 1980 F 39 From: Kevin flynn MD PCP: Maude Hayden DO Status: REG CL Study: DIAG MAMM W/CAD, BILAT Date of Exam: 06/07/20 Exam# [id number] Ordering Dr: Maude Hayden DO MAMMOGRAPHY - BILATERAL DIAGNOSTIC REASON FOR EXAM: Female, 39 years old. 3 day history of a right breast lump. PERTINENT HISTORY: Non-contributory. TECHNIQUE: Digital bilateral breast tom (3D mammographic acquisition) in the CC and MLO projections. 2-D mediolateral oblique (MLO) and craniocaudad (CC) views of both breasts were obtained. CAD: Full Field Digital Mammography with Computer Added Detection was performed. COMPARISON: None. Baseline examination. FINDINGS: Breast Composition: The breasts are heterogeneously dense, which may obscure small masses. There are no dominant masses or suspicious calcifications. No other significant abnormalities are identified. BI/DIAG MAMM W/CAD, BILAT IMPRESSION: Negative diagnostic mammogram. With the patient''s history of a palpable lump in the right breast, correlation with ultrasound is recommended. ASSESSMENT CATEGORY: BIRADS Category 0: Incomplete. Need additional imaging evaluation. A letter regarding these results will be sent to the patient by the facility within 30 days. Approximately 10% of breast cancers are not detected by mammography. A normal mammogram should not delay biopsy of a clinically suspicious abnormality. Electronically Signed: Kevin Mensah MD at 10:03 EST , Service support , CC: Dr. Maude Hayden DO; Maude Hayden DO Machine Ceramic Coater: Signed Maude Hayden Work Phone: Start: 02-05-2019 End: 02-06-2019 Thyroid Comments: See Note; NOTES: [facility] [address] [place] [address] Thyroid MR#: [id number] Acct: [id number] Name: MCKINLEY SHEPPARDYuli Aleman Rep #: [id number] : 1980 F 38 From: Thai Neville MD PCP: Maude Hayden DO Status: REG CLI Study: Thyroid Date of Exam: 02/05/19 Exam# [id number] Ordering Dr: Maude Hayden DO STUDY: THYROID ULTRASOUND REASON FOR EXAM: Female, 38 years old. Thyroid nodule follow-up TECHNIQUE: Ultrasound evaluation of the thyroid was performed with real-time and static lyons-scale imaging. COMPARISON: 12/26/2017 FINDINGS: RIGHT LOBE: The right lobe of the thyroid gland measures 4.0 x 1.9 x 1.1 cm. There is a homogeneous echotexture. Small anechoic cyst of the mid right thyroid lobe measures 3 mm with possible echogenic crystal. LEFT LOBE: The left lobe of the thyroid gland measures 4 x 1.7 x 1.2 cm. There is a homogeneous echotexture. Similar nearly anechoic cyst of the left thyroid lobe measures up to 4 mm. ISTHMUS: The isthmus measures 2 mm. The regional lymph nodes are normal. US/Thyroid IMPRESSION: Stable exam. Colloidal cysts. No suspicious/solid, new or enlarging thyroid nodules. Electronically Signed: Thai Neville MD ([facility]) at 15:52 EDT , Service support , CC: Maude Hayden DO Machine Ceramic Coater: Signed Maude Hayden Work Phone: Start: 12-26-2017 End: 12-26-2017 Thyroid Comments: See Note; NOTES: [facility] [address] [place] [address] Thyroid MR#: [id number] Acct: [id number] Name: MIYA SHEPPARD Rep #: [id number] : 1980 F 37 From: Edin Sullivan MD PCP: Care Physician, No Primary Status: REG CLI Study: Thyroid Date of Exam: 12/26/17 Exam# [id number] Ordering Dr: Maude Hayden DO STUDY: THYROID ULTRASOUND REASON FOR EXAM: Female, 37 years old. Enlarged thyroid TECHNIQUE: Ultrasound evaluation of the thyroid was performed with real-time and static lyons-scale imaging. COMPARISON: None. FINDINGS: RIGHT LOBE: The right lobe of the thyroid gland measures 4.9 x 1.7 x 1.6 cm. There is a homogeneous echotexture. There is a 4 x 3 mm solid and cystic nodule in the upper pole. LEFT LOBE: The left lobe of the thyroid gland measures 5.0 x 1.7 x 1.6 cm. There is a homogeneous echotexture. There are no demonstrated solid, cystic or complex lesions. ISTHMUS: The isthmus measures 3 mm. The regional lymph nodes are normal. US/Thyroid IMPRESSION: Subcentimeter solid and cystic nodule in the right lobe of the thyroid. Otherwise, unremarkable thyroid ultrasound. Electronically Signed: Edin Sullivan, at 20:14 EDT Tel , Service support , CC: No Primary Care Physician; Maude Hayden DO Machine Ceramic Coater: Signed Maude Hayden Work Phone: Cytopathology procedure, preparation of smear, genital source DO Maude Hayden Foot sx Keisha Gravius Comment on above: Foot sx Maritza Slarb Comment on above: lt Foot sx Latisha Wilkinson PN Comment on above: lt Foot sx Maritza Slavincent LP N Comment on above: Investigation of transfusion reaction DO Maude Hayden Microscopic examinat ion of cervical Papanicolaou smear Keisha Gravius Comment on above: 09/05 Microscopic examinat ion of cervical Papanicolaou smear Maritza Slarb Comment on above: 09/05 Microscopic examinat ion of cervical Papanicolaou smear Latisha Escobar LPN Comment on above: 09/05 Microscopic examinat ion of cervical Papanicolaou smear Maritza Winston LPN Comment on above: 09/05 Ophthalmic examinati on and evaluation Keisha Ware Comment on above: 2015 Ophthalmic examinati on and evaluation Maritza Winston Comment on above: 2015 Ophthalmic examinati on and evaluation Latisha Escobar LPN Comment on above: 2015 Ophthalmic examinati on and evaluation Maritza Winston LPN Comment on above: 2015 Screening colonoscopy Keisha Ware Comment on above: 2005 Screening colonoscopy Maritza Winston Comment on above: 2005 Screening colonoscopy Latisha Escobar LPN Comment on above: 2005 Screening colonoscopy Maritza Winston LPN Comment on above: 2005 Plan of Treatment Date Care Activity Detail Author Start: 01-06-2025 MG Breast - bilateral Screening [facility] Start: 11-04-2022 Procedure Education Eprescribed prescriptions (G8553) [facility]; [facility] Work Phone: Start: 11-04-2022 Lipid panel LIPID PANEL (58662) [facility]; [facility] Work Phone: Start: 11-04-2022 Assay of thyroid stimulating hormone tsh TSH (37827) [facility]; [facility] Work Phone: Start: 11-04-2022 Assay of free thyroxine T4, FREE (THYROXINE) (29920) [facility]; [facility] Work Phone: Start: 11-04-2022 Assay of triiodothyronine t3 free T3, FREE (TRIDOTHYRONINE) (59339) [facility]; [facility] Work Phone: Start: 03-01-2021 Procedure Education Eprescribed prescriptions (G8553) [facility]; [facility] Work Phone: Start: 11-29-2020 Procedure Education Eprescribed prescriptions (G8553) [facility]; [facility] Work Phone: Start: 03-05-2019 Microsomal antibodies each Anti TPO Antibody (48382) [facility] Work Phone: Start: 03-03-2019 Procedure Education Eprescribed prescriptions (G8553) [facility] Work Phone: Start: 03-03-2019 Provider Instructions for Treatment [facility] Work Phone: Start: 12-10-2018 Procedure Education Eprescribed prescriptions (G8553) [facility] Work Phone: Start: 12-10-2018 TSH Qn TSH (22044) [facility] Work Phone: Start: 12-10-2018 Free T4 [Mass/Vol] T4, FREE (THYROXINE) (54798) [facility] Work Phone: Start: 12-10-2018 Free T3 [Mass/Vol] T3, FREE (TRIDOTHYRONINE) (89363) [facility] Work Phone: Start: 01-09-2018 Provider Instructions for Treatment [facility] Work Phone: [facility] Work Phone: [facility] Work Phone: [facility] Work Phone: [facility] Work Phone: [facility]; [facility] Work Phone: [facility]; [facility] Work Phone: [facility] Work Phone: [facility] Work Phone: [facility]; [facility] Work Phone: [facility] Work Phone: [facility]; [facility] Work Phone: [facility]; [facility] Work Phone: [facility]; [facility] Work Phone: Payers Date Payer Category Payer Self-pay [id number] 2023 Unknown [id number] Unknown Unknown [id number] Unknown [facility] [id number] [facility] [place] PACKAGE PLAN [id number] Unknown [id number] Unknown [id number] Unknown [id number] Unknown [id number] Social History Date Type Detail Facility Caffeine Use Caffeine Use [facility] Work Phone: Comment on above: qd Exercise History: Exercise History: [facility]pr [facility] Work Phone: Living Situation: Living Situation: [facility] Work Phone: Number of Child (age 0-17) Dependents: Number of Child (age 0-17) Dependents: [facility] Work Phone: Pets/Animals: Pets/Animals: [facility] Work Phone: Exercise History: Exercise History: [facility]pr [facility]; [facility] Work Phone: Living Situation: Living Situation: [facility]; [facility] Work Phone: Number of Child (age 0-17) Dependents: Number of Child (age 0-17) Dependents: [facility]; [facility] Work Phone: Pets/Animals: Pets/Animals: [facility]; [facility] Work Phone: Start: 12-25-2021 End: 01-01-2023 Tobacco smoking status NHIS Unknown if ever smoked [facility] Start: 07-13-2020 Non-smoker [facility] Start: 1980 Sex Assigned At Female [facility] Start: 01-01-2023 Tobacco smoking status NHIS Ex-smoker (finding) [facility] Sex Female [facility] Clinical Note 01-01-2023 Note Date & Type Note Facility 01-01-2023 Note [facility] Pap Smear Specimen Adequacy January 01, 2023 10:02am Comment . Satisfactory for evaluation. No endocervical component is identified. Comment on above: Satisfactory for dre luation. No endocervical component is identified. Evaluation note Note Date & Type Note Facility Evaluation note Diagnosis Onset Date Encounter for routine gyneco logical examination noneactive Vaginal odor noneactive [facility] Work Phone: Evaluation note Note Date & Type Note Facility Evaluation note Diagnosis Onset Date Dysmenorrhea acute Family history unknown acute Menorrhagia with regular cycle acute Encounter for routine gyneco logical examination noneactive Vaginal discharge noneactive [facility] Work Phone: Evaluation note Note Date & Type Note Facility Evaluation note Diagnosis Onset Date Resolution Encounter for routine gynecological examination noneactive January 05, 2025 8:02am [facility] Work Phone: Instructions Note Date & Type Note Facility Instructions Name Patient Instructions Indication:Thyroid cyst Start: Instruction Type:Provider Instructions for Treatment How to Access Health Information Online using Patient Portal and 3rd Libertarian Apps Indication:Thyroid cyst Start: Instruction Type:Patient Education Patient Instructions Indication:BMI 29.0-29.9,adult Start: Instruction Type:Provider Instructions for Treatment How to Access Health Information Online using Patient Portal and 3rd Libertarian Apps Indication:BMI 29.0-29.9,adult Start: Instruction Type:Patient Education How to access health information online Indication:Non-smoker Start: 9 Instruction Type:Patient Education How to access health information online - Detail Indication:Non-smoker Start: Instruction Type:Patient Education Patient Instructions Indication:Non-smoker Start: 9 Instruction Type:Provider Instructions for Treatment How to access health information online Indication:Non-smoker Start: 9 Instruction Type:Patient Education How to access health information online - Detail Indication:Non-smoker Start: 9 Instruction Type:Patient Education Patient Instructions Indication:Non-smoker Start: 9 Instruction Type:Provider Instructions for Treatment How to access health information online Indication:Non-smoker Start: 8 Instruction Type:Patient Education How to access health information online - Detail Indication:Non-smoker Start: 8 Instruction Type:Patient Education Patient Instructions Indication:Non-smoker Start: 8 Instruction Type:Provider Instructions for Treatment How to access health information online Indication:Non-smoker Start: 8 Instruction Type:Patient Education How to access health information online - Detail Indication:Non-smoker Start: 8 Instruction Type:Patient Education Patient Instructions Indication:Non-smoker Start: 8 Instruction Type:Provider Instructions for Treatment [facility]; [facility] Work Phone: Instructions Note Date & Type Note Facility Instructions Name Patient Instructions Indication:Thyroid cyst Start: Instruction Type:Provider Instructions for Treatment How to Access Health Information Online using Patient Portal and 3rd Libertarian Apps Indication:Thyroid cyst Start: Instruction Type:Patient Education Patient Instructions Start: 1 Instruction Type:Provider Instructions for Treatment How to Access Health Information Online using Patient Portal and 3rd Libertarian Apps Start: 1 Instruction Type:Patient Education How to access health information online Start: 9 Instruction Type:Patient Education How to access health information online - Detail Start: 9 Instruction Type:Patient Education Patient Instructions Start: 9 Instruction Type:Provider Instructions for Treatment How to access health information online Start: 9 Instruction Type:Patient Education How to access health information online - Detail Start: 9 Instruction Type:Patient Education Patient Instructions Start: 9 Instruction Type:Provider Instructions for Treatment How to access health information online Start: 8 Instruction Type:Patient Education How to access health information online - Detail Start: 8 Instruction Type:Patient Education Patient Instructions Start: 8 Instruction Type:Provider Instructions for Treatment How to access health information online Start: 8 Instruction Type:Patient Education How to access health information online - Detail Start: 8 Instruction Type:Patient Education Patient Instructions Start: 8 Instruction Type:Provider Instructions for Treatment [facility]; [facility] Work Phone: Instructions Note Date & Type Note Facility Instructions Name How to Access Health Information Online using Patient Portal and 3rd Libertarian Apps Indication:BMI 29.0-29.9,adult Start: 3 Instruction Type:Patient Education Patient Instructions Indication:BMI 29.0-29.9,adult Start: 3 Instruction Type:Provider Instructions for Treatment Patient Instructions Indication:Thyroid cyst Start: 1 Instruction Type:Provider Instructions for Treatment How to Access Health Information Online using Patient Portal and 3rd Libertarian Apps Indication:Thyroid cyst Start: 1 Instruction Type:Patient Education Patient Instructions Indication:BMI 29.0-29.9,adult Start: 1 Instruction Type:Provider Instructions for Treatment How to Access Health Information Online using Patient Portal and 3rd Libertarian Apps Indication:BMI 29.0-29.9,adult Start: 1 Instruction Type:Patient Education How to access health information online Indication:Non-smoker Start: 9 Instruction Type:Patient Education How to access health information online - Detail Indication:Non-smoker Start: 9 Instruction Type:Patient Education Patient Instructions Indication:Non-smoker Start: 9 Instruction Type:Provider Instructions for Treatment How to access health information online Indication:Non-smoker Start: 9 Instruction Type:Patient Education How to access health information online - Detail Indication:Non-smoker Start: 9 Instruction Type:Patient Education Patient Instructions Indication:Non-smoker Start: 9 Instruction Type:Provider Instructions for Treatment How to access health information online Indication:Non-smoker Start: 8 Instruction Type:Patient Education How to access health information online - Detail Indication:Non-smoker Start: 8 Instruction Type:Patient Education Patient Instructions Indication:Non-smoker Start: 8 Instruction Type:Provider Instructions for Treatment How to access health information online Indication:Non-smoker Start: 8 Instruction Type:Patient Education How to access health information online - Detail Indication:Non-smoker Start: 8 Instruction Type:Patient Education Patient Instructions Indication:Non-smoker Start: 8 Instruction Type:Provider Instructions for Treatment [facility]; [facility] Work Phone: Instructions Note Date & Type Note Facility Instructions Name How to Access Health Information Online using Patient Portal and 3rd [employer] Apps Indication:BMI 29.0-29.9,adult Start: 3 Instruction Type:Patient Education Patient Instructions Indication:BMI 29.0-29.9,adult Start: 3 Instruction Type:Provider Instructions for Treatment Patient Instructions Indication:Thyroid cyst Start: 1 Instruction Type:Provider Instructions for Treatment How to Access Health Information Online using Patient Portal and 3rd Libertarian Apps Indication:Thyroid cyst Start: 1 Instruction Type:Patient Education Patient Instructions Indication:BMI 29.0-29.9,adult Start: 1 Instruction Type:Provider Instructions for Treatment How to Access Health Information Online using Patient Portal and 3rd Libertarian Apps Indication:BMI 29.0-29.9,adult Start: 1 Instruction Type:Patient Education How to access health information online Indication:Non-smoker Start: 9 Instruction Type:Patient Education How to access health information online - Detail Indication:Non-smoker Start: 9 Instruction Type:Patient Education Patient Instructions Indication:Non-smoker Start: 9 Instruction Type:Provider Instructions for Treatment How to access health information online Indication:Non-smoker Start: 9 Instruction Type:Patient Education How to access health information online - Detail Indication:Non-smoker Start: 9 Instruction Type:Patient Education Patient Instructions Indication:Non-smoker Start: 9 Instruction Type:Provider Instructions for Treatment How to access health information online Indication:Non-smoker Start: 8 Instruction Type:Patient Education How to access health information online - Detail Indication:Non-smoker Start: 8 Instruction Type:Patient Education Patient Instructions Indication:Non-smoker Start: 8 Instruction Type:Provider Instructions for Treatment How to access health information online Indication:Non-smoker Start: 8 Instruction Type:Patient Education How to access health information online - Detail Indication:Non-smoker Start: 8 Instruction Type:Patient Education Patient Instructions Indication:Non-smoker Start: 8 Instruction Type:Provider Instructions for Treatment [facility]; [facility] Work Phone: Instructions Note Date & Type Note Facility Instructions Name How to Access Health Information Online using Patient Portal and 3rd [employer] Apps Indication:BMI 29.0-29.9,adult Start: 3 Instruction Type:Patient Education Patient Instructions Indication:BMI 29.0-29.9,adult Start: 3 Instruction Type:Provider Instructions for Treatment Patient Instructions Indication:Thyroid cyst Start: 1 Instruction Type:Provider Instructions for Treatment How to Access Health Information Online using Patient Portal and 3rd [employer]arian Apps Indication:Thyroid cyst Start: 1 Instruction Type:Patient Education Patient Instructions Indication:BMI 29.0-29.9,adult Start: 1 Instruction Type:Provider Instructions for Treatment How to Access Health Information Online using Patient Portal and 3rd [employer] Apps Indication:BMI 29.0-29.9,adult Start: 1 Instruction Type:Patient Education How to access health information online Indication:Non-smoker Start: 9 Instruction Type:Patient Education How to access health information online - Detail Indication:Non-smoker Start: 9 Instruction Type:Patient Education Patient Instructions Indication:Non-smoker Start: 9 Instruction Type:Provider Instructions for Treatment How to access health information online Indication:Non-smoker Start: 9 Instruction Type:Patient Education How to access health information online - Detail Indication:Non-smoker Start: 9 Instruction Type:Patient Education Patient Instructions Indication:Non-smoker Start: 9 Instruction Type:Provider Instructions for Treatment How to access health information online Indication:Non-smoker Start: 8 Instruction Type:Patient Education How to access health information online - Detail Indication:Non-smoker Start: 8 Instruction Type:Patient Education Patient Instructions Indication:Non-smoker Start: 8 Instruction Type:Provider Instructions for Treatment How to access health information online Indication:Non-smoker Start: Instruction Type:Patient Education How to access health information online - Detail Indication:Non-smoker Start: Instruction Type:Patient Education Patient Instructions Indication:Non-smoker Start: Instruction Type:Provider Instructions for Treatment [facility]; [facility] Work Phone: Reason for referral (narrative) Note Date & Type Note Facility Reason for referral (narrative) No reason for referral information available [facility] Work Phone: Family History Unknown Family Member Name Dates Details Heart Disease, Other Comments:Mother. Status:Active Kidney Disease Comments:Maternal Grandmothe r. Status:Active Prostate Cancer Comments:Maternal Grandfathe r. Status:Active Unknown Family Member Name Dates Details Heart Disease, Other Comments:Mother. Status:Active Kidney Disease Comments:Maternal Grandmothe r. Status:Active Prostate Cancer Comments:Maternal Grandfathe r. Status:Active Unknown Family Member Name Dates Details Heart Disease, Other Comments:Mother. Status:Active Kidney Disease Comments:Maternal Grandmothe r. Status:Active Prostate Cancer Comments:Maternal Grandfathe r. Status:Active Unknown Family Member Name Dates Details Heart Disease, Other Comments:Mother. Status:Active Kidney Disease Comments:Maternal Grandmothe r. Status:Active Prostate Cancer Comments:Maternal Grandfathe r. Status:Active Unknown Family Member Name Dates Details Heart Disease, Other Comments:Mother. Status:Active Kidney Disease Comments:Maternal Grandmothe r. Status:Active Prostate Cancer Comments:Maternal Grandfathe r. Status:Active Unknown Family Member Name Dates Details Heart Disease, Other Comments:Mother. Status:Active Kidney Disease Comments:Maternal Grandmothe r. Status:Active Prostate Cancer Comments:Maternal Grandfathe r. Status:Active Unknown Family Member Name Dates Details Heart Disease, Other Comments:Mother. Status:Active Kidney Disease Comments:Maternal Grandmothe r. Status:Active Prostate Cancer Comments:Maternal Grandfathe r. Status:Active Relationship Condition Age at Onset Recorded Date/T alona Not Specified Arthritis Unknown Malignant neoplasm Unknown Hypertension Unknown High blood cholesterol Unknown Calculus of kidney Unknown Cerebrovascular accident (CVA) Unknown Malignant neoplasm of thyroid gland Unkno wn Thyroid nodule Unknown Unknown Family Member Name Dates Details Heart Disease, Other Comments:Mother. Status:Active Kidney Disease Comments:Maternal Grandmothe r. Status:Active Prostate Cancer Comments:Maternal Grandfathe r. Status:Active Unknown Family Member Name Dates Details Heart Disease, Other Comments:Mother. Status:Active Kidney Disease Comments:Maternal Grandmothe r. Status:Active Prostate Cancer Comments:Maternal Grandfathe r. Status:Active Unknown Family Member Name Dates Details Heart Disease, Other Comments:Mother. Status:Active Kidney Disease Comments:Maternal Grandmothe r. Status:Active Prostate Cancer Comments:Maternal Grandfathe r. Status:Active Unknown Family Member Name Dates Details Heart Disease, Other Comments:Mother. Status:Active Kidney Disease Comments:Maternal Grandmothe r. Status:Active Prostate Cancer Comments:Maternal Grandfathe r. Status:Active Relationship Condition Age at Onset Recorded Date/T alona unrelated friend Arthritis Unknown Malignant neoplasm Unknown Hypertension Unknown High blood cholesterol Unknown Calculus of kidney Unknown Cerebrovascular accident (CVA) Unknown Malignant neoplasm of thyroid gland Unkno wn Thyroid nodule Unknown Instructions Name Dates Details How to access health informa tion online Indication:Non-smoker Start:10-Dec-2018 Instruction Type:Patient Education How to access health informa tion online - Detail Indication:Non-smoker Start:10-Dec-2018 Instruction Type:Patient Education Patient Instructions Indication:Non-smoker Start:10-Dec-2018 Instruction Type:Provider Instructions for Treatment How to access health informa tion online Indication:Non-smoker Start:09-Jan-2018 Instruction Type:Patient Education How to access health informa tion online - Detail Indication:Non-smoker Start:09-Jan-2018 Instruction Type:Patient Education Patient Instructions Indication:Non-smoker Start:09-Jan-2018 Instruction Type:Provider Instructions for Treatment How to access health informa tion online Indication:Non-smoker Start:19-Dec-2017 Instruction Type:Patient Education How to access health informa tion online - Detail Indication:Non-smoker Start:19-Dec-2017 Instruction Type:Patient Education Patient Instructions Indication:Non-smoker Start:19-Dec-2017 Instruction Type:Provider Instructions for Treatment Name Dates Details How to access health informa tion online Indication:Non-smoker Start:10-Dec-2018 Instruction Type:Patient Education How to access health informa tion online - Detail Indication:Non-smoker Start:10-Dec-2018 Instruction Type:Patient Education Patient Instructions Indication:Non-smoker Start:10-Dec-2018 Instruction Type:Provider Instructions for Treatment How to access health informa tion online Indication:Non-smoker Start:09-Jan-2018 Instruction Type:Patient Education How to access health informa tion online - Detail Indication:Non-smoker Start:09-Jan-2018 Instruction Type:Patient Education Patient Instructions Indication:Non-smoker Start:09-Jan-2018 Instruction Type:Provider Instructions for Treatment How to access health informa tion online Indication:Non-smoker Start:19-Dec-2017 Instruction Type:Patient Education How to access health informa tion online - Detail Indication:Non-smoker Start:19-Dec-2017 Instruction Type:Patient Education Patient Instructions Indication:Non-smoker Start:19-Dec-2017 Instruction Type:Provider Instructions for Treatment Name Dates Details How to access health informa tion online Indication:Non-smoker Start:10-Dec-2018 Instruction Type:Patient Education How to access health informa tion online - Detail Indication:Non-smoker Start:10-Dec-2018 Instruction Type:Patient Education Patient Instructions Indication:Non-smoker Start:10-Dec-2018 Instruction Type:Provider Instructions for Treatment How to access health informa tion online Indication:Non-smoker Start:09-Jan-2018 Instruction Type:Patient Education How to access health informa tion online - Detail Indication:Non-smoker Start:09-Jan-2018 Instruction Type:Patient Education Patient Instructions Indication:Non-smoker Start:09-Jan-2018 Instruction Type:Provider Instructions for Treatment How to access health informa tion online Indication:Non-smoker Start:19-Dec-2017 Instruction Type:Patient Education How to access health informa tion online - Detail Indication:Non-smoker Start:19-Dec-2017 Instruction Type:Patient Education Patient Instructions Indication:Non-smoker Start:19-Dec-2017 Instruction Type:Provider Instructions for Treatment Name Dates Details How to access health informa tion online Indication:Non-smoker Start:03-Mar-2019 Instruction Type:Patient Education How to access health informa tion online - Detail Indication:Non-smoker Start:03-Mar-2019 Instruction Type:Patient Education Patient Instructions Indication:Non-smoker Start:03-Mar-2019 Instruction Type:Provider Instructions for Treatment How to access health informa tion online Indication:Non-smoker Start:10-Dec-2018 Instruction Type:Patient Education How to access health informa tion online - Detail Indication:Non-smoker Start:10-Dec-2018 Instruction Type:Patient Education Patient Instructions Indication:Non-smoker Start:10-Dec-2018 Instruction Type:Provider Instructions for Treatment How to access health informa tion online Indication:Non-smoker Start:09-Jan-2018 Instruction Type:Patient Education How to access health informa tion online - Detail Indication:Non-smoker Start:09-Jan-2018 Instruction Type:Patient Education Patient Instructions Indication:Non-smoker Start:09-Jan-2018 Instruction Type:Provider Instructions for Treatment How to access health informa tion online Indication:Non-smoker Start:19-Dec-2017 Instruction Type:Patient Education How to access health informa tion online - Detail Indication:Non-smoker Start:19-Dec-2017 Instruction Type:Patient Education Patient Instructions Indication:Non-smoker Start:19-Dec-2017 Instruction Type:Provider Instructions for Treatment Name Dates Details How to access health informa tion online Indication:Non-smoker Start:03-Mar-2019 Instruction Type:Patient Education How to access health informa tion online - Detail Indication:Non-smoker Start:03-Mar-2019 Instruction Type:Patient Education Patient Instructions Indication:Non-smoker Start:03-Mar-2019 Instruction Type:Provider Instructions for Treatment How to access health informa tion online Indication:Non-smoker Start:10-Dec-2018 Instruction Type:Patient Education How to access health informa tion online - Detail Indication:Non-smoker Start:10-Dec-2018 Instruction Type:Patient Education Patient Instructions Indication:Non-smoker Start:10-Dec-2018 Instruction Type:Provider Instructions for Treatment How to access health informa tion online Indication:Non-smoker Start:09-Jan-2018 Instruction Type:Patient Education How to access health informa tion online - Detail Indication:Non-smoker Start:09-Jan-2018 Instruction Type:Patient Education Patient Instructions Indication:Non-smoker Start:09-Jan-2018 Instruction Type:Provider Instructions for Treatment How to access health informa tion online Indication:Non-smoker Start:19-Dec-2017 Instruction Type:Patient Education How to access health informa tion online - Detail Indication:Non-smoker Start:19-Dec-2017 Instruction Type:Patient Education Patient Instructions Indication:Non-smoker Start:19-Dec-2017 Instruction Type:Provider Instructions for Treatment Name Dates Details How to access health informa tion online Indication:Non-smoker Start:03-Mar-2019 Instruction Type:Patient Education How to access health informa tion online - Detail Indication:Non-smoker Start:03-Mar-2019 Instruction Type:Patient Education Patient Instructions Indication:Non-smoker Start:03-Mar-2019 Instruction Type:Provider Instructions for Treatment How to access health informa tion online Indication:Non-smoker Start:10-Dec-2018 Instruction Type:Patient Education How to access health informa tion online - Detail Indication:Non-smoker Start:10-Dec-2018 Instruction Type:Patient Education Patient Instructions Indication:Non-smoker Start:10-Dec-2018 Instruction Type:Provider Instructions for Treatment How to access health informa tion online Indication:Non-smoker Start:09-Jan-2018 Instruction Type:Patient Education How to access health informa tion online - Detail Indication:Non-smoker Start:09-Jan-2018 Instruction Type:Patient Education Patient Instructions Indication:Non-smoker Start:09-Jan-2018 Instruction Type:Provider Instructions for Treatment How to access health informa tion online Indication:Non-smoker Start:19-Dec-2017 Instruction Type:Patient Education How to access health informa tion online - Detail Indication:Non-smoker Start:19-Dec-2017 Instruction Type:Patient Education Patient Instructions Indication:Non-smoker Start:19-Dec-2017 Instruction Type:Provider Instructions for Treatment Summary Purpose Advance Directives Advance Directive Response Recorded Date/ Time Advance Directives No July 03 11:53am Living Will Yes July 13, 2020 9:59am Power of Animal Nutrition Teacher Yes July 13 9:59am Advance Directive Response Recorded Date/ Time Advance Directives No July 03 11:53am Chief Complaint and Reason for Visit 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 Reason for Visit Encounter for routin e gynecological examination Vaginal odor Chief Complaint SCREENING 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 Reason for Visit Dysmenorrhea Family history unknown Menorrhagia with regular cycle Encounter for routine gynecological examination Vaginal discharge Chief Complaint Admit Date 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) January 05, 2025 8:02am Reason for Visit Admit Date Encounter for routine gynecological exam ination January 05, 2025 8:02am Additional Source Comments INFORMATION SOURCE (unrecogn ized section and content) DATE CREATED AUTHOR 04/27/2019 [facility] DATE CREATED AUTHOR AUTHOR'S ORGANIZ ATION 01/03/2025 [facility] Goals (unrecognized section and content) Goals may be documented in a n alternate sectionGoals may be documented in an alternate sectionGoals may be documented in an alternate section Care Teams (unrecognized sec tion and content) Team Status: Active Member Role Status Dates Maude CURRAN, DO Family Provider Active Dr. Maude Hayden , DO Primary Care Provider Active Team Status: Inactive Member Role Status Dates Maude CURRAN, DO Referring Provider Active Janet Reyes NP, SDV PILOT/NAVIGATOR/DDS OPERATOR-C Attending Provider Active Dr. Maude Hayden DO Primary Care Provider Active Team Status: Inactive Member Role Status Dates Dr. Maude Hayden DO Primary Care Pr ovider, Attending Provider, Referring Provider Active Team Status: Inactive Member Role Status Dates Dr. Maude Hayden DO Primary Care Provider Active Janet Reyes NP, NP-C Attending Provider, Referring Provider Active Team Status: Active Member Role/Relationship Status Dates Dr. Maude Hayden DO Primary care physician Active Team Status: Inactive Member Role/Relationship Status Dates Dr. Maude Hayden DO Primary care physician Active Start: January 05, 2025 End: January 05, 2025 Dr. Maude Hayden DO Referring Provider Active Start: January 05, 2025 End: January 05, 2025 Janet Reyes NP, NP-C Attending physician Active Start: January 05, 2025 End: January 05, 2025 FOR RECORDS PERTAINING TO PATIENTS WHO ARE OR HAVE BEEN ENROLLED IN A CHEMICAL DEPENDENCY/SUBSTANCEABUSE PROGRAM, SOME INFORMATION MAY BE OMITTED. This clinical summary was aggregated from multiple sources. Caution should be exercised in using it in the provision of clinical care. This summary normalizes information from multiple sources, and as a consequence, information in this document may materially change the coding, format and clinical context of patient data. In addition, data may be omitted in some cases. CLINICAL DECISIONS SHOULD BE BASED ON THE PRIMARY CLINICAL RECORDS. [employer] [facility]. provides no warranty or guarantee of the accuracy or completeness of information in this document.
== END | disposition home or self-care (01) ==
LOC: OPBI 07:37
PROVIDERS: PCP Internal Medicine; Referring Provider Nurse Practitioner Women's Health; Visit Provider Nurse Practitioner Women's Health
DX: Z12.31 Encounter for screening mammogram for malignant neoplasm of breast (principal)
CPT/HCPCS: 77063; 77067